=== PATIENT | female | born 1950 | race Caucasian/White ===

== ENCOUNTER → 2016-06-20 | Outpatient (REF) | payer MEDICARE ==
[~2016-06-20] MED LIST: ACET0.052 PO; AMLO10TA2 PO; ASPI32ECTA PO; ATOR1TAB18 PO; CINA30TA PO; DOCU10CA PO; FAMO40TA3 PO; FERR325T16 PO; FOLI1TAB2 PO; FURO20TA2 PO; HYDR1TAB97 PO; LEVO100T5 PO; METO25TAB PO; MICR10CA PO; MILKSUS PO; NEUTPW PO; PHOS1TAB3 PO; RAMI1.25 PO; ROBILIQ PO; THERTAB56 PO; TYLE167L PO; TYLE325T5 PO; ULTR50TA PO; VITA500T88 PO; VOLT1GEL24 TD; [UNRECOGNIZED DRUG - CODE] PR; flexeril PO
[2016-06-24 00:08] LABS: FREE KAPPA LIGHT CHAINS SERUM 49.56 mg/L (3.30-19.40); FREE LAMBDA LIGHT CHAINS SERUM 29.02 mg/L (5.71-26.30); KAPPA/LAMBDA RATIO SERUM 1.71 (0.26-1.65)
== END ==
LOC: M LAB REF 16:37
PROVIDERS: ATTEND Internal Medicine Medical Oncology
DX: C90.00 Multiple myeloma not having achieved remission (principal)

== ENCOUNTER → 2016-07-18 | Outpatient (REF) | payer MEDICARE ==
[~2016-07-18] MED LIST changes: +HYDR-3713 PO; -HYDR1TAB97 PO
[2016-07-18 18:32] LABS: TOTAL PROTEIN 6.4 GM/DL (6.4-8.2)
[2016-07-19 13:56] LABS: ALBUMIN 2.78 GM/DL (3.29-5.55); ALBUMIN % 43.5 % (55.8-66.1); GAMMA GLOBULIN % 11.2 % (11.1-18.8)
[2016-07-21 00:09] LABS: FREE KAPPA LIGHT CHAINS SERUM 84.5 mg/L (3.30-19.40); FREE LAMBDA LIGHT CHAINS SERUM 49.2 mg/L (5.71-26.30); KAPPA/LAMBDA RATIO SERUM 1.72 (0.26-1.65)
== END ==
LOC: M LAB REF 16:14
PROVIDERS: ATTEND Internal Medicine Medical Oncology
DX: C90.00 Multiple myeloma not having achieved remission (principal)

== ENCOUNTER 2016-07-19 13:19 | Outpatient (CLI) | payer MEDICARE ==
[2016-07-19 14:05] VITALS: BP 174/68
[2016-07-19] MEDS ORDERED: ACETAMINOPHEN TAB 650MG DOSE (2X325MG) PO ONE (14:15)
[2016-07-19] MEDS ORDERED: diphenhydrAMINE 25 MG CAP PO ONE (14:15)
[2016-07-19] MEDS ORDERED: SODIUM CHLORIDE 0.9% INJ 10 ML SYR IV PRN (17:30)
== END 2016-07-19 20:00 | disposition home or self-care (01) ==
LOC: M OPCLI4PV 13:19 → M MSPAV 13:59 → M OPCLI4PV 20:00
PROVIDERS: ATTEND Internal Medicine Medical Oncology
DX: C90.00 Multiple myeloma not having achieved remission (principal)
CPT/HCPCS: 36430; P9016

== ENCOUNTER → 2016-07-20 | Outpatient (CLI) | payer MEDICARE ==
--- NOTE | 2016-07-20 14:14 | REP ---
Right upper extremity duplex venous scanning: History: Recheck right upper extremity. Right hand and wrist swelling. Findings: The right internal jugular, right subclavian, right axillary, right brachial, right cephalic and basilic veins are anechoic and compressible. Color flow imaging is homogeneous. Spectral Doppler interrogation is unremarkable. There is no evidence of venous thrombosis in the right upper extremity. Impression: Negative right upper extremity duplex venous ultrasound. No evidence of right upper extremity venous thrombosis. Signed by Salty Calix MD 07/20/2016 04:33 P
== END ==
LOC: M RAD 12:24
PROVIDERS: ATTEND Internal Medicine Medical Oncology
DX: M79.641 Pain in right hand (principal)

== ENCOUNTER → 2016-08-29 | Outpatient (REF) | payer MEDICARE ==
[2016-08-29 18:38] LABS: TOTAL PROTEIN 7.2 GM/DL (6.4-8.2)
[2016-08-30 11:15] LABS: ALBUMIN 4.32 GM/DL (3.29-5.55); GAMMA GLOBULIN % 14.7 % (11.1-18.8)
[2016-09-01 14:15] LABS: FREE KAPPA LIGHT CHAINS SERUM 72.69 mg/L (3.30-19.40); FREE LAMBDA LIGHT CHAINS SERUM 25.66 mg/L (5.71-26.30); KAPPA/LAMBDA RATIO SERUM 2.83 (0.26-1.65)
== END ==
LOC: M LAB REF 16:42
PROVIDERS: ATTEND Internal Medicine Medical Oncology
DX: C90.00 Multiple myeloma not having achieved remission (principal)

== ENCOUNTER → 2016-10-31 | Outpatient (REF) | payer MEDICARE ==
[2016-10-31 19:11] LABS: TOTAL PROTEIN 7.1 GM/DL (6.4-8.2)
[2016-11-02 12:08] LABS: ALBUMIN 4.15 GM/DL (3.29-5.55); ALBUMIN % 58.4 % (55.8-66.1); GAMMA GLOBULIN % 16.4 % (11.1-18.8)
[2016-11-04 00:07] LABS: FREE KAPPA LIGHT CHAINS SERUM 169.03 mg/L (3.30-19.40); FREE LAMBDA LIGHT CHAINS SERUM 16.25 mg/L (5.71-26.30); KAPPA/LAMBDA RATIO SERUM 10.4 (0.26-1.65)
== END ==
LOC: M LAB REF 17:09
PROVIDERS: ATTEND Internal Medicine Medical Oncology
DX: C90.00 Multiple myeloma not having achieved remission (principal); Z79.899 Other long term (current) drug therapy

== ENCOUNTER → 2017-01-02 | Outpatient (REF) | payer MEDICARE ==
[~2017-01-02] MED LIST changes: +ASPI325T24 PO; -ASPI32ECTA PO; -ATOR1TAB18 PO; +ATOR80TA59 PO; -FOLI1TAB2 PO; +FOLI1TAB4 PO; -ULTR50TA PO; +ULTR50TA8 PO; +VOLT1GEL15 TD; -VOLT1GEL24 TD
[2017-01-02 20:04] LABS: IMMUNOGLOBULIN G 853 MG/DL (681-1648); TOTAL PROTEIN 7.7 GM/DL (6.4-8.2)
[2017-01-02 20:49] LABS: IMMUNOGLOBULIN M 8.51 MG/DL (40-230)
[2017-01-03 11:09] LABS: ALBUMIN % 57.8 % (55.8-66.1)
[2017-01-03 11:10] LABS: ALBUMIN 4.45 GM/DL (3.29-5.55); GAMMA GLOBULIN % 17.6 % (11.1-18.8)
[2017-01-05 00:08] LABS: FREE LAMBDA LIGHT CHAINS SERUM 10.3 mg/L (5.7-26.3); KAPPA/LAMBDA RATIO SERUM 33.01 (0.26-1.65)
== END ==
LOC: M LAB REF 16:34
PROVIDERS: ATTEND Internal Medicine Medical Oncology
DX: C90.00 Multiple myeloma not having achieved remission (principal)

== ENCOUNTER → 2017-02-28 | Outpatient (REF) | payer MEDICARE ==
[2017-02-28 18:57] LABS: FREE T4 1.03 NG/DL (0.76-1.46)
== END ==
LOC: M LAB REF 17:06
PROVIDERS: ATTEND Family Medicine
DX: E89.0 Postprocedural hypothyroidism (principal)

== ENCOUNTER → 2017-02-28 | Outpatient (REF) | payer MEDICARE ==
[2017-02-28 19:09] LABS: IMMUNOGLOBULIN G 595 MG/DL (681-1648); TOTAL PROTEIN 7.8 GM/DL (6.4-8.2)
[2017-02-28 20:01] LABS: IMMUNOGLOBULIN M 5.85 MG/DL (40-230)
[2017-03-01 13:45] LABS: ALBUMIN 4.22 GM/DL (3.29-5.55); ALBUMIN % 54.1 % (55.8-66.1); GAMMA GLOBULIN % 21.7 % (11.1-18.8)
[2017-03-03 00:06] LABS: FREE KAPPA LIGHT CHAINS SERUM 613.6 mg/L (3.3-19.4); FREE LAMBDA LIGHT CHAINS SERUM 7.7 mg/L (5.7-26.3); KAPPA/LAMBDA RATIO SERUM 79.69 (0.26-1.65)
== END ==
LOC: M LAB REF 17:07
PROVIDERS: ATTEND Internal Medicine Medical Oncology
DX: C90.00 Multiple myeloma not having achieved remission (principal); E89.0 Postprocedural hypothyroidism

== ENCOUNTER → 2017-03-12 | Outpatient (CLI) | payer MEDICARE ==
--- NOTE | 2017-03-14 09:48 | DEXA ---
AP SPINE L1 - L4 0.984 -1.7 -0.1 LT FEMUR TOTAL 0.578 -3.4 -2.1 RT FEMUR TOTAL 0.497 -4.1 -2.7 TOTAL BODY TOTAL OTHER COMMENTS: There is low bone density of the spine. There is osteoporosis of the hips. FOLLOW-UP: Recommendation for the next bone density exam: 2 years. MALIK
== END ==
LOC: M WHC 13:43
PROVIDERS: ATTEND Internal Medicine Medical Oncology
DX: C90.02 Multiple myeloma in relapse (principal); M81.0 Age-related osteoporosis without current pathological fracture

== ENCOUNTER → 2017-03-15 | Outpatient (CLI) | payer MEDICARE ==
--- NOTE | 2017-03-15 15:03 | REP ---
WHOLE BODY RADIONUCLIDE BONE SCAN: HISTORY: Restaging myeloma. Comparison radionuclide bone scan is from April 27, 2014. TECHNIQUE: 22.0 mCi technetium 99m MDP is injected, and standard whole body bone scan imaging is acquired. FINDINGS: Whole body bone scan imaging today demonstrates a metastatic pattern of multifocal increased uptake with lesions scattered in the axial skeleton involving bilateral ribs, the right proximal femur, the left inferior pubic ramus, the left femoral neck, and the lower sternum. A possible right parietal calvarial lesion is seen on lateral view of the skull. There is linear uptake in the sternum suggesting median sternotomy. Multiple anterior and posterior bilateral rib lesions are seen. There is suspicious uptake in T12 and T10 vertebral body in the region of the pedicles on the left. There is linear uptake in the L3 vertebral body horizontally oriented suggesting a recent wedge compression fracture deformity. There is arthritic uptake in the right wrist and in both acromioclavicular joints. IMPRESSION: Metastatic pattern of multifocal skeletal uptake involving the axial skeleton as above. Signed by Salty Calix MD 03/15/2017 05:23 P
== END ==
LOC: M RAD 10:32
PROVIDERS: ATTEND Internal Medicine Medical Oncology
DX: C90.00 Multiple myeloma not having achieved remission (principal)
CPT/HCPCS: 78306; A9503

== ENCOUNTER → 2017-05-28 | Outpatient (REF) | payer MEDICARE ==
[2017-05-28 19:31] LABS: IMMUNOGLOBULIN A 53.6 MG/DL (70-400); IMMUNOGLOBULIN G 391 MG/DL (681-1648)
[2017-05-28 20:31] LABS: IMMUNOGLOBULIN M < 5.3 MG/DL (40-230)
[2017-05-31 00:07] LABS: FREE KAPPA LIGHT CHAINS SERUM 7.2 mg/L (3.3-19.4); KAPPA/LAMBDA RATIO SERUM 0.6 (0.26-1.65)
[2017-05-31 12:41] LABS: ALBUMIN % 45.2 % (55.8-66.1); GAMMA GLOBULIN % 6.8 % (11.1-18.8)
== END ==
LOC: M LAB REF 17:57
PROVIDERS: ATTEND Internal Medicine Medical Oncology
DX: C90.00 Multiple myeloma not having achieved remission (principal)

== ENCOUNTER → 2017-06-25 | Outpatient (REF) | payer MEDICARE ==
[2017-06-25 14:16] LABS: IMMUNOGLOBULIN A 70.2 MG/DL (70-400); IMMUNOGLOBULIN G 455 MG/DL (681-1648); IMMUNOGLOBULIN M 23.4 MG/DL (40-230); TOTAL PROTEIN 6.4 GM/DL (6.4-8.2)
[2017-06-27 00:08] LABS: FREE KAPPA LIGHT CHAINS SERUM 15.1 mg/L (3.3-19.4); FREE LAMBDA LIGHT CHAINS SERUM 16.9 mg/L (5.7-26.3); KAPPA/LAMBDA RATIO SERUM 0.89 (0.26-1.65)
[2017-06-29 10:42] LABS: ALBUMIN % 57.6 % (55.8-66.1); ALPHA-1-GLOBULIN % 6.6 % (2.9-4.9); BETA-1-GLOBULINS % 6.7 % (4.7-7.2)
[2017-06-29 10:43] LABS: ALBUMIN 3.69 GM/DL (3.29-5.55); ALPHA-1-GLOBULINS 0.42 GM/DL (0.17-0.41); ALPHA-2-GLOBULINS 1.09 GM/DL (0.42-0.99); BETA-1-GLOBULINS 0.43 GM/DL (0.28-0.60); BETA-2-GLOBULINS 0.29 GM/DL (0.19-0.55); BETA-2-GLOBULINS % 4.5 % (3.2-6.5); GAMMA GLOBULIN % 7.6 % (11.1-18.8); GAMMA GLOBULINS 0.49 GM/DL (0.65-1.58)
== END ==
LOC: M LAB REF 12:42
DX: C90.00 Multiple myeloma not having achieved remission (principal)
CPT/HCPCS: 84165

== ENCOUNTER → 2017-08-06 | Outpatient (REF) | payer MEDICARE ==
[2017-08-06 14:42] LABS: IMMUNOGLOBULIN G 421 MG/DL (681-1648); TOTAL PROTEIN 6.9 GM/DL (6.4-8.2)
[2017-08-06 15:30] LABS: IMMUNOGLOBULIN M 10.8 MG/DL (40-230)
[2017-08-07 13:39] LABS: ALBUMIN % 57.4 % (55.8-66.1); ALPHA-1-GLOBULIN % 4.6 % (2.9-4.9)
[2017-08-07 13:40] LABS: ALBUMIN 3.96 GM/DL (3.29-5.55); ALPHA-1-GLOBULINS 0.32 GM/DL (0.17-0.41); ALPHA-2-GLOBULINS 1.06 GM/DL (0.42-0.99); ALPHA-2-GLOBULINS % 15.4 % (7.1-11.8); BETA-1-GLOBULINS % 5.8 % (4.7-7.2); BETA-2-GLOBULINS % 11.6 % (3.2-6.5); GAMMA GLOBULIN % 5.2 % (11.1-18.8); GAMMA GLOBULINS 0.36 GM/DL (0.65-1.58)
[2017-08-08 00:06] LABS: FREE KAPPA LIGHT CHAINS SERUM 8.2 mg/L (3.3-19.4); FREE LAMBDA LIGHT CHAINS SERUM 7.6 mg/L (5.7-26.3); KAPPA/LAMBDA RATIO SERUM 1.08 (0.26-1.65)
== END ==
LOC: M LAB REF 13:32
DX: C90.00 Multiple myeloma not having achieved remission (principal)
CPT/HCPCS: 84165

== ENCOUNTER → 2017-10-22 | Outpatient (CLI) | payer MEDICARE ==
[~2017-10-22] MED LIST changes: -ACET0.052 PO; -AMLO10TA2 PO; -ASPI325T24 PO; -ATOR80TA59 PO; -CINA30TA PO; -DOCU10CA PO; -FAMO40TA3 PO; -FERR325T16 PO; -FOLI1TAB4 PO; -FURO20TA2 PO; -HYDR-3713 PO; -LEVO100T5 PO; -METO25TAB PO; -MICR10CA PO; -MILKSUS PO; -NEUTPW PO; -PHOS1TAB3 PO; +PROHANCE 279.3MG/ML 5ML VIAL (A9576) As Ordered; -RAMI1.25 PO; -ROBILIQ PO; -THERTAB56 PO; -TYLE167L PO; -TYLE325T5 PO; -ULTR50TA8 PO; -VITA500T88 PO; -VOLT1GEL15 TD; -[UNRECOGNIZED DRUG - CODE] PR; -flexeril PO
== END ==
LOC: M RAD 16:11
DX: M87.9 Osteonecrosis, unspecified (principal); Z87.81 Personal history of (healed) traumatic fracture; R93.7 Abnormal findings on diagnostic imaging of other parts of musculoskeletal system
CPT/HCPCS: A9576

== ENCOUNTER → 2017-12-10 | Outpatient (REF) | payer MEDICARE | LOC: M SFHCPLAZ 13:29 | DX: E89.0 Postprocedural hypothyroidism (principal) | CPT/HCPCS: 84443 ==

== ENCOUNTER → 2018-01-04 | Outpatient (REF) | payer MEDICARE ==
[2018-01-04 14:34] LABS: IMMUNOGLOBULIN A 72.4 MG/DL (70-400); IMMUNOGLOBULIN G 368 MG/DL (681-1648); TOTAL PROTEIN 6.7 GM/DL (6.4-8.2)
[2018-01-04 14:37] LABS: IMMUNOGLOBULIN M 7.71 MG/DL (40-230)
[2018-01-06 00:09] LABS: FREE KAPPA LIGHT CHAINS SERUM 32.6 mg/L (3.3-19.4); FREE LAMBDA LIGHT CHAINS SERUM 5.3 mg/L (5.7-26.3); KAPPA/LAMBDA RATIO SERUM 6.15 (0.26-1.65)
[2018-01-07 13:53] LABS: ALBUMIN 4.25 GM/DL (3.29-5.55); ALBUMIN % 63.5 % (55.8-66.1); ALPHA-1-GLOBULIN % 4.9 % (2.9-4.9); ALPHA-1-GLOBULINS 0.33 GM/DL (0.17-0.41); ALPHA-2-GLOBULINS 0.99 GM/DL (0.42-0.99); ALPHA-2-GLOBULINS % 14.8 % (7.1-11.8); BETA-1-GLOBULINS 0.42 GM/DL (0.28-0.60); BETA-1-GLOBULINS % 6.3 % (4.7-7.2); BETA-2-GLOBULINS 0.28 GM/DL (0.19-0.55); BETA-2-GLOBULINS % 4.2 % (3.2-6.5); GAMMA GLOBULIN % 6.3 % (11.1-18.8); GAMMA GLOBULINS 0.42 GM/DL (0.65-1.58)
== END ==
LOC: M LAB REF 13:08
DX: C90.00 Multiple myeloma not having achieved remission (principal); C79.51 Secondary malignant neoplasm of bone; Z79.83 Long term (current) use of bisphosphonates
CPT/HCPCS: 84165

== ENCOUNTER → 2018-02-04 | Outpatient (REF) | payer MEDICARE ==
[2018-02-04 14:53] LABS: IMMUNOGLOBULIN A 94.6 MG/DL (70-400); IMMUNOGLOBULIN G 402 MG/DL (681-1648)
[2018-02-04 15:58] LABS: IMMUNOGLOBULIN M 6.01 MG/DL (40-230)
== END ==
LOC: M LAB REF 13:33
DX: Z79.83 Long term (current) use of bisphosphonates (principal); C79.51 Secondary malignant neoplasm of bone; C90.00 Multiple myeloma not having achieved remission
CPT/HCPCS: 82784

== ENCOUNTER → 2018-03-04 | Outpatient (REF) | payer MEDICARE ==
[2018-03-04 16:36] LABS: IMMUNOGLOBULIN G 401 MG/DL (681-1648); TOTAL PROTEIN 6.9 GM/DL (6.4-8.2)
[2018-03-04 16:59] LABS: IMMUNOGLOBULIN M 5.4 MG/DL (40-230)
[2018-03-05 11:23] LABS: ALBUMIN 4.28 GM/DL (3.29-5.55); ALBUMIN % 62.1 % (55.8-66.1); ALPHA-1-GLOBULIN % 4.9 % (2.9-4.9); ALPHA-1-GLOBULINS 0.34 GM/DL (0.17-0.41); ALPHA-2-GLOBULINS 1.06 GM/DL (0.42-0.99); ALPHA-2-GLOBULINS % 15.4 % (7.1-11.8); BETA-1-GLOBULINS 0.43 GM/DL (0.28-0.60); BETA-1-GLOBULINS % 6.2 % (4.7-7.2); BETA-2-GLOBULINS % 4.3 % (3.2-6.5); GAMMA GLOBULIN % 7.1 % (11.1-18.8); GAMMA GLOBULINS 0.49 GM/DL (0.65-1.58)
== END ==
LOC: M LAB REF 13:48
DX: C90.00 Multiple myeloma not having achieved remission (principal); C79.51 Secondary malignant neoplasm of bone; Z79.83 Long term (current) use of bisphosphonates
CPT/HCPCS: 84165

== ENCOUNTER → 2018-06-14 | Outpatient (REF) | payer MEDICARE ==
[~2018-06-14] MED LIST changes: +ACET0.052 PO; +ACYC400T PO; +AMLO10TA5 PO; +ASPI325T25 PO; +ATOR80TA59 PO; +CALTCHW5 PO; +CINA30TA PO; +DEXA4TA PO; +DOCU10CA PO; +FAMO40TA3 PO; +FERR325T16 PO; +FOLI1TAB11 PO; +FURO20TA2 PO; +HYDR-3713 PO; +LEVO100T5 PO; +METO1TAB32 PO; +METO1TAB87 PO; +METO25TAB PO; +MICR10CA PO; +MILK120011 PO; +MIRA3350 PO; +MONT10TA2 PO; +NEUTPW PO; +PHOS1TAB3 PO; -PROHANCE 279.3MG/ML 5ML VIAL (A9576) As Ordered; +RAMI1CAP21 PO; +ROBILIQ PO; +SENO8.6T5 PO; +THERTAB56 PO; +TYLE167L PO; +TYLE325T5 PO; +ULTR50TA8 PO; +VITA500T88 PO; +VOLT1GEL15 TD; +[UNRECOGNIZED DRUG - CODE] PR; +flexeril PO
[2018-06-14 14:34] LABS: TOTAL PROTEIN,RANDOM URINE 14.8 MG/DL (0.0-12.0)
== END ==
LOC: M LAB REF 13:34
PROVIDERS: ATTEND Internal Medicine Hematology & Oncology
DX: R39.9 Unspecified symptoms and signs involving the genitourinary system (principal)

== ENCOUNTER → 2018-10-02 | Outpatient (CLI) | payer MEDICARE ==
[~2018-10-02] MED LIST changes: +ASPI-255 PO; -ASPI325T25 PO; +METO1TAB63 PO; -METO25TAB PO; +SYNT88TA2 PO
--- NOTE | 2018-10-02 15:02 | REP ---
SKELETAL SURVEY: 16 VIEWS. HISTORY: Myeloma. Comparison skeletal survey is from March 04, 2015. FINDINGS: The prior study showed widespread skeletal involvement with innumerable punched-out radiolucent lesions throughout the axial skeleton. Diffuse osteoporosis was seen. Today's study shows innumerable radiolucent calvarial lesions in the bony calvarium diffusely. These are felt to be more numerous than on the March 04, 2015 study. No large radiolucent lesion is seen. There are numerous mandibular lesions which also appear to have progressed in number. There are widespread radiolucencies throughout the pelvis and proximal femurs bilaterally and advanced diffuse osteopenia is again evident. These are more numerous. There is a healing fracture of the inferior pubic ramus on the left, which is a new finding. There are numerous lytic lesions in the mid and proximal femurs bilaterally which are similar to the prior study. Proximal humeral lesions are again seen bilaterally also similar to the prior study. Multiple wedge compression deformities are again noted in the thoracic and lumbar spine involving T9 through L1 as well as L3 and L5. The thoracic compressions are unchanged in extent. The partial collapse of the superior endplate of L5 is new compared to the prior study. There is progressive loss of vertebral body height at L3, although there is some healing sclerosis change at L3. No new vertebral collapse is appreciated. IMPRESSION: Widespread skeletal punched-out lucent lesions consistent with myelomatous involvement. There is evidence of progression, most conspicuously in the calvarium and pelvis. Electronically Signed by Salty Calix MD 10/02/2018 04:04 P
== END ==
LOC: M RAD 10:45
PROVIDERS: ATTEND Internal Medicine Hematology & Oncology
DX: C90.00 Multiple myeloma not having achieved remission (principal)

== ENCOUNTER → 2018-11-12 | Outpatient (CLI) | payer MEDICARE ==
[~2018-11-12] MED LIST changes: -CINA30TA PO; +CINA30TA4 PO; +OXYC-517 PO; +VALA500T5 PO
--- NOTE | 2018-11-13 07:41 | RADONC ---
RADIATION ONCOLOGY CONSULTATION: DATE: 11/12/2018 REFERRING PHYSICIAN: Dr. Kelsea Azar. DIAGNOSIS: She has a diagnosis of multiple myeloma, kappa M type. STAGE: III. ICD-10 CODE: C 90.00. ECOG PERFORMANCE STATUS: 1. HISTORY OF PRESENT ILLNESS: The patient is a 68-year-old female who is fairly well known to this department because we have treated her in 2015 for palliation. She carries a diagnosis of a kappa M multiple myeloma, stage III, and had been treated with a single agent for quite a long period of time (daratumumab). In fact, the patient was doing quite well on this treatment. She had actually fairly stable disease but most recently has shown evidence of progression. She saw Dr. Kelsea Azar, who had placed the patient on daratumumab. She has most recently shown evidence of progressive lytic involvement of the skeletal system and she also has had an increase in her serologies. The pain is described as "excruciating" and it is located in the right acetabular region when she puts weight upon her leg as in getting up or standing. She describes the pain as a 10 out of 10. The most recent skeletal survey performed on 10/02/2018 reveals widespread skeletal punched-out lucent lesions consistent with multiple myeloma. There was evidence of progression most conspicuously in the calvarium and in the pelvis. She comes to us today to discuss her options with regard to radiotherapy and palliation of her fairly debilitating pain. PAST MEDICAL HEALTH: She has a history of hypertension and hypothyroidism and a previous cardiac bypass. ALLERGIES: No known drug allergies. SOCIAL HISTORY: The patient quit smoking in 2017, however, prior to that smoked one pack of cigarettes for about 30 years. She denies alcohol abuse. FAMILY HISTORY: She has a negative history for malignancies. WORK HISTORY: She has been a homemaker. She has two children who are healthy. REVIEW OF SYSTEMS: She has significant physical limitations secondary to pain in the right hemipelvis. She describes her pain as being a10/10 and located in the groin area approximately at the location of the acetabulum on the right. Her pain is of course we worse when she stands or puts weight upon her leg or with some lateral movement of her lack. HEENT: Denies headaches, visual disturbances, dizziness, photophobia, diplopia, oral pain, pharyngeal pain, odynophagia or dysphagia. LYMPHATICS: She denies any previous history of lymphadenopathy. She denies easy bruising. PULMONARY: Denies difficulty with breathing thoracic pain, coughing, sputum production or hemoptysis. HEART: Denies rhythmic irregularities chest pain, difficulty breathing, coughing. ABDOMEN: Denies abdominal pains nausea, vomiting, diarrhea, constipation. GENITOURINARY: Denies dysuria, hematuria. GYNECOLOGIC: Denies vaginal discharge or bleeding. SKELETAL SYSTEM: She has exquisite tenderness of her right hip upon standing. NEUROLOGIC EXAMINATION: Denies any focal motor neurologic deficits. EXAMINATION FINDINGS: Weight 149, BP 126/74, pulse 70, temperature 99.7, respirations 18, height 5 foot 1 inch. HEENT: Normocephalic. EOMs intact. JULIÁN. Fundi benign. LYMPHATICS: No palpable peripheral lymphadenopathy is appreciated. LUNGS: Clear to auscultation and percussion. HEART: Regular without murmurs. ABDOMEN: Without evidence of hepatomegaly, masses, deep abdominal tenderness. EXTREMITIES: Without cyanosis, clubbing or edema. NEUROLOGIC: Examination grossly physiologic. IMPRESSION: Stage III kappa M multiple myeloma status post treatment with single-agent daratumumab now with evidence of progressive disease with excruciating pain in the right hemipelvis and radiographic evidence of progressive tumor involvement and serologic evidence of advancing disease. PLAN OF RADIOTHERAPY: The patient would be an appropriate candidate for local regional palliative radiotherapy. Upon reviewing her old history, she had a dose of approximately 2100 cGy administered to the lower T-L spine with SI regions included as well as the right hip. As she has only had 2100 cGy, I feel additional radiotherapy would be a possibility for palliation. An additional dose of approximately 2100 cGy should be well tolerated administered at conventional fractionation. The indications, possible side effects as well as alternatives to radiotherapy have been explained to the patient in detail. She does understand that we are retreating her and that this might be fraught with potential side effects, especially if any bowel is retreated. We will make every effort to avoid any bowel within our radiation portals but again she is aware that she has had previous radiotherapy and that there is a risk for potential injury because of her retreatment. She is willing to proceed as outlined. Thank you for referring this very nereida lady to us and allowing us the opportunity of participation in her overall management. cc: Dr. Kelsea Azar [facility]
== END ==
LOC: M ONCR 12:51
PROVIDERS: ATTEND Radiology Radiation Oncology
DX: C90.00 Multiple myeloma not having achieved remission (principal)

== ENCOUNTER → 2018-11-29 | Outpatient (CLI) | payer MEDICARE ==
[~2018-11-29] MED LIST changes: +REVL15CA PO
--- NOTE | 2018-11-29 14:42 | REP ---
MRI RIGHT HIP: TECHNIQUE: Coronal T1, STIR through the pelvis, T2 fat sat, right hip all three planes, axial oblique proton density fat sat right hip. Multiple bone lesions are seen throughout the osseous structures of the pelvis and proximal left femur consistent with a history of wide-spread multiple myeloma. The proximal aspect of the right femur demonstrates possibly a few tiny subcentimeter bone lesions. However, there is focal marrow edema in the medial aspect of the proximal left femur just above the lesser trochanter with a somewhat linear configuration having the appearance of a focal stress fracture at that location. There is a tear of the anterior labrum of the right hip superiorly. There is a small right hip joint effusion. There is mild surrounding soft tissue edema. No definite intrapelvic abnormality is seen. IMPRESSION: Findings most consistent with a focal cortical stress fracture of the medial aspect of the proximal right femur just above the lesser trochanter. Multiple innumerable bone lesions throughout the osseous structures of the pelvis and proximal left femur consistent with the patient's history of widespread multiple myeloma. There may be a few tiny subcentimeter lesions in the proximal right femur. There is a tear of the superior aspect of the anterior labrum of the right hip. There is a small joint effusion as well. Unreviewed
== END ==
LOC: M RAD 13:02
PROVIDERS: ATTEND Internal Medicine Medical Oncology
DX: C90.00 Multiple myeloma not having achieved remission (principal); M25.451 Effusion, right hip; S73.101A Unspecified sprain of right hip, initial encounter; X58.XXXA Exposure to other specified factors, initial encounter; Y92.89 Other specified places as the place of occurrence of the external cause

== ENCOUNTER 2018-12-06 11:17 | Outpatient (RCR) | payer MEDICARE ==
--- NOTE | 2018-11-14 10:34 | RADONC ---
RADIATION ONCOLOGY SIMULATION NOTE: DATE: 11/14/2018 DIAGNOSIS: Stage III kappa multiple myeloma with intractable pain in the right proximal femur secondary to her recurrent disease. CHART NUMBER: [id number] SIMULATION: The patient was seen for simulation of the right proximal femur. An immobilization device was constructed for patient stability to enable an accurate day-to-day treatment. The patient was then placed in the supine position with the immobilization device in place and 3 mm images were obtained through the right femoral area. The simulation process went forward with no complications or no discomfort to the patient. She tolerated this process well and I was present during the entire simulation process. Contouring will be made of vital structures and of the intended treatment area (PTV). A treatment plan will be generated and treatments will be initiated thereafter. cc: Kelsea Azar MD [facility]
--- NOTE | 2018-12-03 10:20 | MEDONC ---
HEMATOLOGY/ONCOLOGY PROGRESS NOTE DATE OF SERVICE: 12/02/2018 This is a very pleasant 68-year-old white female who will be starting elotuzumab/lenalidomide/dexamethasone regimen for her multiple myeloma that has shown disease progression by virtue of increasing serologies, as well as new areas on her bone imaging study skeletal survey. The patient had developed pain in the pelvic area and was found by most recent imaging studies to have a stress fracture in the pelvic region. The patient has read the patient information regarding the elotuzumab therapy and is ready to receive treatment today. She is already on acyclovir or prophylaxis. The patient's past medical history is above-noted, stage IIIB IgA multiple myeloma with increasing light chain disease. PRIOR CHEMOTHERAPY REGIMENS: Were: Aredia/Velcade/Revlimid/dexamethasone. Ninlaro, Revlimid, and dexamethasone. Carfilzomib and Revlimid. Zometa. Pomalyst, daratumumab, and dexamethasone. Single-agent daratumumab and dexamethasone. PAST MEDICAL HISTORY: Includes obesity, hypertension, hyperlipidemia, coronary artery disease status post CABG, hyperthyroidism status post parathyroidectomy, hypothyroidism, and hysterectomy. On the review of systems, the patient uses a walker for ambulation. Relates that she still has some discomfort when she is sitting in the chair, which has been her average. She is currently on oxycodone for pain medication and did not take it this morning. On her physical examination, the patient's ECOG is 2/4. Her weight is 68.7. On her vital signs, she has a temperature of 96.9, pulse is 68, respiratory rate is 18, BP is 153/76, pulse oximetry is 94. Her HEENT is normocephalic, atraumatic. PERRL. EOMI. Her sclerae are otherwise white, anicteric. Oropharynx is otherwise clear. Her neck is supple with no adenopathy. Chest is decreased breath sounds at the bases. Cardiovascular: S1 and S2 are appreciated with no murmurs. Abdomen is otherwise soft, nontender. Her extremities show no cyanosis, +1 trace edema. LABORATORIES: Today show a WBC count of 6.5, hemoglobin of 11.3 over hematocrit 35.9, MCV of 104.3, platelet counts are 295, neutrophils are 85.1, lymphocytes are 9.4. On the chemistries, her sodium is 134, potassium is 4.2, chloride is 100, CO2 24, BUN is 19, creatinine of 1.24, calcium is 9.3, AST of 7, ALT of -4, alkaline phosphatase of 121. On 10/15/2018, free kappa light chains were 573.9. Her lambda quantitative was 2.4, and the free kappa/lambda ratio was 239. IgA was 467, IgM less than 5.3, IgG 9.7. On the patient's imaging studies, she had an MRI of her hip done showing findings most consistent with focal cortical stress fracture of the medial aspect of the proximal right femur just above the lesser trochanter and multiple innumerable bone lesions throughout the osseous structures of the pelvis and proximal left femur consistent with the patient's history of widespread multiple myeloma. There may be a few tiny subcentimeter lesions in the proximal right femur. There is a tear of the superior aspect of the anterior labrum of the right hip. There is also a small joint effusion, as well. IMPRESSION: At this time is: 1. Rising creatinine from 0.99 to 1.24. 2. Rising kappa light chains from 317 in July to 573 currently. 3. Increase in the pelvic lesions, multiple myeloma lesions. 4. Current pain being managed with oxycodone is adequate at this point. PLAN: Is: 1. To continue the current pain regimen. 2. To start the elotuzumab regimen and to monitor the patient's serum free light and kappa chains after two cycles of therapy are given. Please note that the elotuzumab regimen changes after cycle two. Electronically Signed by Kelsea Azar MD 12/03/2018 10:31 A DD: Kelsea Azar MD 12/02/2018 09:44 A DT: aml 12/03/2018 09:53 A CC:
[2018-12-09] MEDS ORDERED: OXYC-517 PO (09:24)
[2018-12-18] MEDS ORDERED: MORP-38 PO ×3 (09:56→09:58)
== END 2018-12-08 ==
LOC: M ONCR 11:17
PROVIDERS: ATTEND Radiology Radiation Oncology
DX: C79.51 Secondary malignant neoplasm of bone (principal); C90.00 Multiple myeloma not having achieved remission

== ENCOUNTER 2018-12-10 11:27 | Outpatient (RCR) | payer MEDICARE ==
--- NOTE | 2018-12-10 06:50 | RADONC ---
RADIATION ONCOLOGY TREATMENT SUMMARY DATE: 12/09/2018 REFERRING PHYSICIAN: Kelsea Azar MD DIAGNOSIS: Multiple myeloma, kappa M type. STAGE: III ECOG PERFORMANCE STATUS: 1 PLAN OF RADIOTHERAPY: Local regional radiotherapy for palliation of pain. Date radiotherapy started 12/02/2018 completed 12/09/2018. DOSE: The patient received a total of 2100 centigray administered in seven fractions over eight elapsed days. Prior to treatment delivery localization was accomplished upon our CT simulator and treatment portals defined by the use of multiple leaf collimators. A 15 MV photon beam was employed for treatment delivery. The patient was treated through anterior posterior parallel opposed portals. STATUS OF TUMOR: There was minimal pain relief during her course of radiotherapy with further potential pain relief hopefully to come. TOLERANCE: In general, treatments were quite well tolerated with no significant skin erythema. No nausea, vomiting, coughing, sputum production or hemoptysis. DISPOSITION: Return to clinic in 1 month for post radiotherapy followup visit and skin check and she was advised to return to her referring physicians as per their directions and instructions. Thank you for allowing us the opportunity of participation in the management of this very fine patient. cc: Kelsea Azar MD [facility]
[~2018-12-10 11:27] MED LIST changes: +ACET-1146 PO; -ACET0.052 PO
[2018-12-16] MEDS ORDERED: REVL15CA PO (06:30)
[2018-12-18] MEDS ORDERED: MORP-69 PO ×3 (09:56→09:58)
[2019-01-01] MEDS ORDERED: VICO10TA11 PO (12:09)
[2019-02-11] MEDS ORDERED: ENOX40IN3 (13:06)
[2019-02-26] MEDS ORDERED: VICO10TA11 PO (11:11)
[2019-02-27] MEDS ORDERED: VICO10TA11 PO (08:07)
[2019-03-31] MEDS ORDERED: VICO10TA11 PO (15:06)
[2019-04-16] MEDS ORDERED: VALA500T5 PO (10:37)
[2019-05-06] MEDS ORDERED: BAYE325T16 PO (11:34)
[2019-05-06] MEDS ORDERED: POMA2CAP PO ×2 (14:55→14:57)
[2019-05-07] MEDS ORDERED: VICO10TA11 PO (10:12)
[2019-05-12] MEDS ORDERED: HYDR-4517 PO (09:23)
[2019-06-05] MEDS ORDERED: HYDR-4517 PO (15:47)
[2019-06-06] MEDS ORDERED: HYDR-4517 PO (09:42)
[2019-06-13] MEDS ORDERED: POMA2CAP PO (09:31)
== END 2019-01-08 ==
LOC: M ONCR 11:27
PROVIDERS: ATTEND Radiology Radiation Oncology
DX: C79.51 Secondary malignant neoplasm of bone (principal); C90.00 Multiple myeloma not having achieved remission

== ENCOUNTER → 2019-01-01 | Outpatient (CLI) | payer MEDICARE ==
[~2019-01-01] MED LIST changes: -ACET-1146 PO; +ACET0.052 PO; +MORP-38 PO; +VICO10TA11 PO
--- NOTE | 2019-01-01 12:48 | REP ---
Right hip two views: There are no comparisons. There is demineralization. There is a nondisplaced femoral neck fracture. No femoral head deformity. There is endosteal scalloping of the proximal femoral shaft compatible with the clinical history of multiple myeloma. Impression: Nondisplaced femoral neck fracture. Endosteal scalloping of the proximal femoral shaft. Electronically Signed by Kendall Arana MD 01/01/2019 12:38 P
--- NOTE | 2019-01-01 12:58 | REP ---
AP pelvis: I suspect an old fracture of the left ischium. No acute fracture is identified. There is diffuse demineralization. The sacroiliac articulations and hip articulations are unremarkable. Impression: No acute fracture. Old left ischial fracture. Electronically Signed by Kendall Arana MD 01/01/2019 12:50 P
== END ==
LOC: M RAD 11:17
PROVIDERS: ATTEND Internal Medicine Hematology & Oncology
DX: S72.044A Nondisplaced fracture of base of neck of right femur, initial encounter for closed fracture (principal); X58.XXXA Exposure to other specified factors, initial encounter; Y92.89 Other specified places as the place of occurrence of the external cause

== ENCOUNTER → 2019-01-15 | Outpatient (CLI) | payer MEDICARE ==
[~2019-01-15] MED LIST changes: +ASPI-1 PO; -MORP-38 PO; +MORP-69 PO; +SENO8.6T10 PO
--- NOTE | 2019-01-17 07:59 | RADONC ---
RADIATION ONCOLOGY FOLLOWUP NOTE DATE: 01/15/2019 REFERRING PHYSICIAN: Dr. Kelsea Azar. DIAGNOSIS: Multiple myeloma, kappa M type. STAGE: III. ECOG PERFORMANCE STATUS: 1. Marianne Milner with a diagnosis of multiple myeloma was treated from 12/02/2018 to 12/09/2018 for a multiple myeloma. Her primary purpose for radiotherapy was to help control pain in her affected hip. She tolerated her radiation reasonably well but received very little palliative response. REVIEW OF SYSTEMS: She denies any nausea, vomiting, diarrhea, dysuria, hematuria or blood per rectum. She does experience a great deal of pain when she moves her right hip, but she denies any skin irritation. Her energy level is diminished, yet she is still able to maintain her day-to-day activities which do not involve ambulation. EXAMINATION FINDINGS: The skin within the irradiated volume shows no evidence of erythema and no focal desquamation. Lymphatics: There is no palpable peripheral lymphadenopathy appreciated. Lungs: Clear to auscultation and to percussion. Heart: Regular without murmurs. Abdomen: Without evidence of hepatomegaly, masses, deep abdominal tenderness. Extremities: Without cyanosis, clubbing or edema. With passive movement of the right lower extremity, the patient experiences a great deal of pain and she virtually because of the pain cannot move this lower extremity independently. IMPRESSION: The patient still is suffering from a great deal of pain in the right lower extremity even though she has completed palliative radiotherapy. PLAN: Would like to see her on a p.r.n. basis and she was advised to return to her referring physicians as per their directions and instructions. Thank you for allowing us the opportunity of participation in the joint followup care of this very nereida lady.
== END ==
LOC: M ONCR 12:52
PROVIDERS: ATTEND Radiology Radiation Oncology
DX: C90.00 Multiple myeloma not having achieved remission (principal)

== ENCOUNTER 2019-01-16 13:28 | Emergency (ER) | payer MEDICARE ==
[~2019-01-16] VITALS: Ht 154.9 cm; Wt 66.8 kg
[~2019-01-16 13:28] MED LIST changes: -ASPI-1 PO; -SENO8.6T10 PO
[2019-01-16] MEDS ORDERED: ASPI-1 PO (16:34)
[2019-01-16] MEDS ORDERED: SENO8.6T10 PO (16:36)
[2019-01-16] MEDS ORDERED: VALA500T5 PO (16:36)
[2019-01-16] MEDS ORDERED: METOPROLOL TART 25 MG TABLET PO ONE (18:45)
[2019-01-16 19:11] VITALS: BP 208/88
[2019-01-16 20:22] VITALS: BP 198/90
[2019-02-11] MEDS ORDERED: ENOX40IN3 (13:06)
== END 2019-01-16 20:24 | disposition short-term general hospital (02) ==
LOC: M ED 13:28
DX: M84.559A Pathological fracture in neoplastic disease, hip, unspecified, initial encounter for fracture (principal); C90.00 Multiple myeloma not having achieved remission; I10 Essential (primary) hypertension; I25.2 Old myocardial infarction; E78.5 Hyperlipidemia, unspecified; E05.00 Thyrotoxicosis with diffuse goiter without thyrotoxic crisis or storm; Z95.1 Presence of aortocoronary bypass graft; Z87.891 Personal history of nicotine dependence; Z79.899 Other long term (current) drug therapy; Z79.82 Long term (current) use of aspirin

== ENCOUNTER → 2019-01-25 | Outpatient (REF) | payer MEDICARE ==
[~2019-01-25] MED LIST changes: +ACET-1146 PO; -ACET0.052 PO; +ASPI-1 PO; +BAYE325T16 PO; +ENOX40IN3; +HYDR-4517 PO; +POMA2CAP PO; +SENO8.6T10 PO
[2019-01-25 13:13] LABS: BLOOD UREA NITROGEN 19 MG/DL (7-18); CALCIUM LEVEL 8.8 MG/DL (8.8-10.2); CARBON DIOXIDE LEVEL 27 MEQ/L (21-32); CHLORIDE LEVEL 104 MEQ/L (98-107); CREATININE FOR GFR 0.86 MG/DL (0.55-1.30); GLOMERULAR FILTRATION RATE > 60.0 (>45); GLUCOSE, FASTING 86 MG/DL (70-100); POTASSIUM SERUM 4.4 MEQ/L (3.5-5.1); SODIUM LEVEL 138 MEQ/L (136-145)
[2019-01-25 13:57] LABS: MAGNESIUM LEVEL 2.2 MG/DL (1.8-2.4)
== END ==
PROVIDERS: ATTEND Internal Medicine
DX: E87.6 Hypokalemia (principal)

== ENCOUNTER → 2019-01-27 | Outpatient (REF) ==
[~2019-01-27] MED LIST changes: -ACET-1146 PO; +ACET0.052 PO; -BAYE325T16 PO; -ENOX40IN3; -HYDR-4517 PO; -POMA2CAP PO
[2019-01-27 10:45] LABS: HEMATOCRIT 30.1 % (36.0-47.0); HEMOGLOBIN 9.9 g/dl (12.0-15.5); MEAN CORPUSCULAR HEMOGLOBIN 32.9 pg (27.0-33.0); MEAN CORPUSCULAR HGB CONC 32.9 g/dl (32.0-36.5); PLATELET COUNT, AUTOMATED 299 10^3/uL (150-450); RED BLOOD COUNT 3.01 10^6/uL (4.00-5.40); WHITE BLOOD COUNT 6.1 10^3/uL (4.0-10.0)
[2019-01-27 11:14] LABS: BLOOD UREA NITROGEN 19 MG/DL (7-18); CALCIUM LEVEL 8.9 MG/DL (8.8-10.2); CARBON DIOXIDE LEVEL 25 MEQ/L (21-32); CHLORIDE LEVEL 101 MEQ/L (98-107); CREATININE FOR GFR 0.75 MG/DL (0.55-1.30); GLOMERULAR FILTRATION RATE > 60.0 (>45); GLUCOSE, FASTING 80 MG/DL (70-100); MAGNESIUM LEVEL 2.4 MG/DL (1.8-2.4); POTASSIUM SERUM 4.4 MEQ/L (3.5-5.1); SODIUM LEVEL 138 MEQ/L (136-145)
[2019-01-27 11:57] LABS: FERRITIN 1224 NG/ML (8-252); IRON (FE) 46 UG/DL (50-170); TOTAL IRON BINDING CAPACITY 219 UG/DL (250-450)
[2019-01-27 12:04] LABS: FOLATE 15.3 NG/ML (>5.4); VITAMIN B12 LEVEL 265 PG/ML (247-911)
== END ==
PROVIDERS: ATTEND Internal Medicine
DX: I10 Essential (primary) hypertension (principal)

== ENCOUNTER → 2019-02-03 | Outpatient (REF) ==
[~2019-02-03] MED LIST changes: +ACET-1146 PO; -ACET0.052 PO; +BAYE325T16 PO; +ENOX40IN3; +HYDR-4517 PO; +POMA2CAP PO
[2019-02-03 11:01] LABS: HEMATOCRIT 29.2 % (36.0-47.0); HEMOGLOBIN 9.3 g/dl (12.0-15.5); MEAN CORPUSCULAR HEMOGLOBIN 33.6 pg (27.0-33.0); MEAN CORPUSCULAR HGB CONC 31.8 g/dl (32.0-36.5); MEAN CORPUSCULAR VOLUME 105.4 fl (80.0-96.0); PLATELET COUNT, AUTOMATED 361 10^3/uL (150-450); RED BLOOD COUNT 2.77 10^6/uL (4.00-5.40); WHITE BLOOD COUNT 6.1 10^3/uL (4.0-10.0)
[2019-02-03 11:23] LABS: BLOOD UREA NITROGEN 18 MG/DL (7-18); CALCIUM LEVEL 8.8 MG/DL (8.8-10.2); CARBON DIOXIDE LEVEL 23 MEQ/L (21-32); CHLORIDE LEVEL 105 MEQ/L (98-107); CREATININE FOR GFR 0.85 MG/DL (0.55-1.30); GLOMERULAR FILTRATION RATE > 60.0 (>45); GLUCOSE, FASTING 82 MG/DL (70-100); POTASSIUM SERUM 4.7 MEQ/L (3.5-5.1); SODIUM LEVEL 138 MEQ/L (136-145)
== END ==
PROVIDERS: ATTEND Internal Medicine
DX: D64.9 Anemia, unspecified (principal)

== ENCOUNTER 2019-04-18 10:18 | Outpatient (CLI) | payer MEDICARE ==
[~2019-04-18] VITALS: Ht 154.9 cm; Wt 68.9 kg
[2019-04-18] VITALS (9 sets, daily range): BP systolic 124–167; BP diastolic 60–70
[~2019-04-18 10:18] MED LIST changes: -BAYE325T16 PO; -HYDR-4517 PO; -POMA2CAP PO
[2019-04-18] MEDS ORDERED: SODIUM CHLORIDE 0.9% INJ 10 ML SYR IV ONE (11:00)
[2019-04-18] MEDS ORDERED: ACETAMINOPHEN TAB 650MG DOSE (2X325MG) PO ONE (11:00)
[2019-04-18] MEDS ORDERED: diphenhydrAMINE 25 MG CAP PO ONE (11:00)
[2019-04-18] MEDS ORDERED: SODIUM CHLORIDE 0.9% INJ 10 ML SYR IV PRN (11:00)
== END 2019-04-18 15:40 | disposition home or self-care (01) ==
LOC: M INFU 10:18
PROVIDERS: ATTEND Internal Medicine Hematology & Oncology
DX: D64.9 Anemia, unspecified (principal)
CPT/HCPCS: 36430; P9016

== ENCOUNTER → 2019-05-12 | Outpatient (REF) | payer MEDICARE ==
[~2019-05-12] MED LIST changes: +BAYE325T16 PO; +HYDR-4517 PO; +POMA2CAP PO
[2019-05-12 14:35] LABS: TOTAL PROTEIN,RANDOM URINE 60.2 MG/DL (0.0-12.0); URINE TOTAL PROTEIN 60.2 MG/DL (0-12)
[2019-05-13 06:07] LABS: TOTAL PROTEIN 24 HOUR URINE 331.1 MG/24HR (50-150); TOTAL VOLUME, URINE 550 ML
== END ==
LOC: M LAB REF 13:47
PROVIDERS: ATTEND Internal Medicine Hematology
DX: C90.00 Multiple myeloma not having achieved remission (principal)

== ENCOUNTER → 2019-05-16 | Outpatient (CLI) | payer MEDICARE ==
--- NOTE | 2019-05-16 13:52 | REP ---
Clinical: Multiple myeloma. Technique: Standard adult bone survey including radiographs of the axial and appendicular skeletal structures including the skull. 16 total images. Findings: Innumerable widespread lucent lesions are noted throughout the osseous structures most notably involving the calvarium, and pelvis of the although lucencies through the clavicles, ribs, vertebral bodies, humeri and left femur are also noted. These findings are relatively similar to prior examination and without obvious significant progression. Degenerative changes involving the spine including chronic anterolisthesis at the C3-4 level as well as chronic relatively stable compression deformities involving lower thoracic and lumbar vertebral bodies with stable alignment through the thoracic and lumbar spine maintained. Impression: 1. Innumerable widespread lucencies essentially unchanged and consistent with multiple myeloma. 2. Chronic diffuse degenerative changes including chronic stable compression deformities at multiple thoracic and lumbar vertebral bodies. 3. No obvious acute process as compared to prior examination. Electronically Signed by Naeem Levine MD 05/16/2019 01:44 P
--- NOTE | 2019-05-16 20:26 | ECHO ---
DATE OF PROCEDURE: 05/16/2019 Date of : 1950 Age: 69 REFERRING PHYSICIAN: Anthony Merida MD PATIENT LOCATION: Outpatient. REASON FOR ECHOCARDIOGRAM: Chemotherapy drug monitoring. 2D MEASUREMENTS: IVS: 1.1 cm LV: 5.0 cm LVPW: 0.9 cm LA: 4.6 cm Aorta: 2.4 cm RV: 3.6 cm IVC: 1.5 cm DOPPLER MEASUREMENTS: Peak velocity across the aortic valve: 2.2 m/s Peak gradient across the mitral valve: 8 mmHg Mitral E: 1.4, Mitral A: 0.9 with a ratio of 1.5 Maximum tricuspid valve velocity: 3.5 m/s 2D COMMENTS: 1. Normal left ventricular size, wall thickness, and normal global left ventricular systolic ejection fraction. The estimated global left ventricular systolic ejection fraction is 60-65%. 2. Mildly enlarged left atrium. The right atrium also appeared to be enlarged. Normal right ventricle. 3. The atrial septum appeared to be normal without evidence of defect or shunt. 4. Normal aortic root. 5. Trace pericardial effusion was noted, no evidence of cardiac tamponade. 6. Mildly calcified aortic valve without any significant restricted leaflet motion. Moderately calcified mitral annulus with normal anterior mitral leaflet motion. Normal tricuspid valve. The pulmonic valve and proximal pulmonary artery branches were not well visualized. 7. The inferior vena cava was normal in size, central venous pressure is most likely normal. DOPPLER: It detects trace aortic regurgitation, mild mitral regurgitation, and moderately severe tricuspid regurgitation as well as trace pulmonic regurgitation. The calculated pulmonary artery systolic pressure varies between 40-50 mmHg. Assessment of the left ventricular diastolic function appeared to be normal. IMPRESSION 1. Normal global left ventricular systolic and diastolic function. 2. Aortic valve sclerosis with trace aortic regurgitation and probably mild aortic stenosis. 3. Mitral annulus calcification with mildly enlarged left atrium and mitral annulus calcification, mild mitral regurgitation and probably mild calcific mitral stenosis. 4. Moderately severe tricuspid regurgitation with moderate pulmonary hypertension and dilated right atrium. 5. Trace pulmonic regurgitation detected. 6. Trace pericardial effusion noted, no evidence of cardiac tamponade.
== END ==
LOC: M CARPUL 12:01
PROVIDERS: ATTEND Internal Medicine Hematology
DX: C90.00 Multiple myeloma not having achieved remission (principal); M51.36 Other intervertebral disc degeneration, lumbar region; M51.34 Other intervertebral disc degeneration, thoracic region

== ENCOUNTER 2019-06-17 09:45 | Outpatient (CLI) | payer MEDICARE ==
[2019-06-17] VITALS (7 sets, daily range): BP systolic 118–158; BP diastolic 54–68
[~2019-06-17] VITALS: Ht 167.6 cm; Wt 72.2 kg
[~2019-06-17 09:45] MED LIST changes: +SODIUM CHLORIDE 0.9% INJ 10 ML SYR IV SCH
== END 2019-06-17 14:15 | disposition home or self-care (01) ==
LOC: M INFU 09:45
PROVIDERS: ATTEND Internal Medicine Hematology
DX: C90.00 Multiple myeloma not having achieved remission (principal)
CPT/HCPCS: 36430; P9016

== ENCOUNTER → 2019-07-25 | Outpatient (CLI) | payer MEDICARE ==
[~2019-07-25] MED LIST changes: +CLAR500T97 PO; +CYCL1CAP2 PO; +DECA4TAB PO; -MONT10TA2 PO; +MONT10TA4 PO; +POTA20TA6 PO; -SODIUM CHLORIDE 0.9% INJ 10 ML SYR IV SCH; +ZOFR4TAB16 PO
--- NOTE | 2019-07-25 14:00 | REP ---
Clinical: Chest pain. Dyspnea. Technique: PA and lateral. Comparison: 10/03/2014. Findings: [id number] identified with tip in the SVC. Evidence of prior sternotomy and CABG again noted. Lung aguirre demonstrate diffuse chronic interstitial changes primarily involving the left base. A relatively new opacities in the right base and medial right paramediastinal lower lung zone now identified. Impression: Relatively new areas of density / opacity at the right base. Possible consolidation and small pleural effusion. Follow-up to resolution and/or chest CT may be considered. Electronically Signed by Naeem Levine MD 07/25/2019 01:51 P
== END ==
LOC: M RAD 13:24
PROVIDERS: ATTEND Internal Medicine Hematology
DX: C90.00 Multiple myeloma not having achieved remission (principal)

== ENCOUNTER 2019-07-30 07:56 | Outpatient (CLI) | payer MEDICARE ==
[2019-07-30] VITALS (7 sets, daily range): BP systolic 134–163; BP diastolic 54–70
[~2019-07-30] VITALS: Ht 154.9 cm; Wt 68.9 kg
[2019-07-30] MEDS ORDERED: diphenhydrAMINE 50 MG CAP PO ONE (08:00)
[2019-07-30] MEDS ORDERED: ACETAMINOPHEN 325 MG TAB PO ONE (08:00)
[2019-07-30] MEDS ORDERED: SODIUM CHLORIDE 0.9% INJ 10 ML SYR IV SCH (09:00)
[2019-07-30] MEDS ORDERED: SODIUM CHLORIDE 0.9% INJ 10 ML SYR IV PRN (12:30)
== END 2019-07-30 12:40 | disposition home or self-care (01) ==
LOC: M INFU 07:56
PROVIDERS: ATTEND Internal Medicine Hematology
DX: C90.00 Multiple myeloma not having achieved remission (principal)
CPT/HCPCS: 36430; P9016

== ENCOUNTER → 2019-08-01 | Outpatient (CLI) | payer MEDICARE ==
--- NOTE | 2019-08-01 17:44 | REP ---
CT of the chest without IV contrast to evaluate for infiltrate: Comparisons are the chest CT of 04/25/2014 and portable plain film study dated 07/25/2019. On the comparison portable plain film study a right lung infiltrate was suspected. On the CT scan today there is an infiltrate in the medial basilar segment of the right lower lobe there is a small right pleural effusion. There is a small infiltrate in the lingular segment of the left upper lobe posteriorly. There are no nodules or masses. There are multiple calcified granulomas in the left hilus and subcarinal mediastinum. This is unchanged. There is no mediastinal lymph node enlargement. No axillary lymph node enlargement. In the absence of IV contrast the study is insensitive for hilar lymph node enlargement. The unenhanced thoracic aorta is unremarkable except for calcified atheroma. Cardiac size is enlarged. There is calcification of the mitral annulus. This is an interval change. There is a right IJ central venous catheter with the tip in the right atrium in satisfactory position. The Impression: There is an infiltrate in the medial basilar segment right lower lobe and a small right pleural effusion. There is a small infiltrate posteriorly in the lingula. These are changes from the prior study. Cardiac size is enlarged. There is calcification of the mitral annulus as an interval change. There is a right IJ central venous catheter as described. Electronically Signed by Kendall Arana MD 08/01/2019 05:36 P
== END ==
LOC: M RAD 16:37
PROVIDERS: ATTEND Internal Medicine Hematology
DX: R91.8 Other nonspecific abnormal finding of lung field (principal); C90.01 Multiple myeloma in remission

== ENCOUNTER → 2020-08-20 | Outpatient (REF) | payer MEDICARE ==
[~2020-08-20] MED LIST changes: -AMLO10TA5 PO; +AMLO1TAB25 PO; +KETO2CR TOP; +MONT10TA10 PO; -MONT10TA4 PO; +POMA3CAP PO
== END ==
LOC: M SFHCPLAZ 15:26
DX: E03.8 Other specified hypothyroidism (principal)

== ENCOUNTER → 2020-09-03 | Outpatient (REF) | payer MEDICARE | LOC: M LAB REF 09:12 | PROVIDERS: ATTEND Hospitalist | DX: E03.8 Other specified hypothyroidism (principal) ==

== ENCOUNTER 2021-06-27 07:40 | Inpatient (IN) | payer MEDICARE ==
[~2021-06-27] VITALS: Ht 154.9 cm; Wt 64.3 kg
[~2021-06-27 07:40] MED LIST changes: +ACYC1TAB PO; -ACYC400T PO; +FERR324T21 PO; -FERR325T16 PO; +IXAZ3CAP PO; +LEVO100C PO; -MONT10TA10 PO; +MONT10TA97 PO; +POTA-151 PO; -POTA20TA6 PO
[2021-06-27] MEDS ORDERED: ONDANSETRON 4MG/2ML VIAL IV ONE (07:50)
[2021-06-27] MEDS ORDERED: MORPHINE 2 MG/ML 1ML VIAL (J2270) IV PRN ×2 (07:50→12:00)
[2021-06-27] MEDS ORDERED: VITMTA PO (08:38)
[2021-06-27] MEDS ORDERED: HOME MED LIST COMPLETE! XX SCH (08:40)
[2021-06-27 10:24] LABS: BASO % 0.2 % (0.0-1.0); EOS % 0.2 % (0.0-3.0); HEMATOCRIT 31.4 % (36.0-47.0); HEMOGLOBIN 10.7 g/dl (12.0-15.5); LYMPH # 0.1 10^3/uL (1.5-5.0); LYMPH % 0.7 % (24.0-44.0); MEAN CORPUSCULAR HEMOGLOBIN 34.5 pg (27.0-33.0); MEAN CORPUSCULAR HGB CONC 34.1 g/dl (32.0-36.5); MEAN CORPUSCULAR VOLUME 101.3 fl (80.0-96.0); MONO # 0.8 10^3/uL (0.0-0.8); MONO % 6.6 % (2.0-8.0); NEUTROPHILS # 11.6 10^3/uL (1.5-8.5); NEUTROPHILS % 91.7 % (36.0-66.0); PLATELET COUNT, AUTOMATED 202 10^3/uL (150-450); WHITE BLOOD COUNT 12.7 10^3/uL (4.0-10.0)
[2021-06-27 10:36] LABS: INR 1.06; PROTHROMBIN TIME 14.2 SECONDS (12.7-14.5)
[2021-06-27 10:37] LABS: PARTIAL THROMBOPLASTIN TIME 41.5 SECONDS (25.9-37.0)
[2021-06-27 10:54] LABS: BLOOD UREA NITROGEN 22 MG/DL (7-18); CALCIUM LEVEL 9.4 MG/DL (8.8-10.2); CARBON DIOXIDE LEVEL 27 MEQ/L (21-32); CHLORIDE LEVEL 100 MEQ/L (98-107); CREATININE FOR GFR 0.71 MG/DL (0.55-1.30); GLOMERULAR FILTRATION RATE > 60.0 (>39); GLUCOSE, FASTING 107 MG/DL (70-100); POTASSIUM SERUM 3.9 MEQ/L (3.5-5.1); SODIUM LEVEL 135 MEQ/L (136-145)
[2021-06-27 12:04] LABS: ALBUMIN 2.9 GM/DL (3.2-5.2); ALT/SGPT 11 U/L (12-78); BILIRUBIN,DIRECT 0.3 MG/DL (0.0-0.2); BILIRUBIN,TOTAL 0.7 MG/DL (0.2-1.0); TOTAL PROTEIN 5.8 GM/DL (6.4-8.2)
[2021-06-27] MEDS: NS 1,000 ML IV SCH ×2 (13:46→18:04)
[2021-06-27] MEDS: PANTOPRAZOLE 40MG VIAL (C9113 PER 1) IV SCH (13:48)
[2021-06-27 16:45] VITALS: BP 176/92
[2021-06-27] MEDS ORDERED: MORPHINE 2 MG/ML 1ML VIAL (J2270) IV ONE (17:55)
[2021-06-27 22:11] VITALS: BP 159/73
[2021-06-27] MEDS: MORPHINE 2 MG/ML 1ML VIAL (J2270) IV PRN (22:42)
[2021-06-28] MEDS: MORPHINE 2 MG/ML 1ML VIAL (J2270) IV PRN (05:15)
[2021-06-28 05:32] VITALS: BP 162/66
[2021-06-28] MEDS ORDERED: SODIUM CHLORIDE 0.9% INJ 10 ML SYR IV PRN ×2 (06:00)
[2021-06-28] MEDS: SODIUM CHLORIDE 0.9% INJ 10 ML SYR IV SCH (09:21)
[2021-06-28] MEDS ORDERED: MORPHINE 4 MG/ML 1ML VIAL/SYRINGE (J2270) IV ONE (10:35)
[2021-06-28] MEDS ORDERED: NALOXONE INJ 0.4MG/1ML VIAL (J2310 PER 1MG) IV PRN (10:35)
[2021-06-28] MEDS: atenoloL 25 MG TAB PO SCH (10:52)
[2021-06-28] MEDS: PANTOPRAZOLE 40MG VIAL (C9113 PER 1) IV SCH (10:52)
[2021-06-28 12:08] LABS: HEMATOCRIT 28.7 % (36.0-47.0); HEMOGLOBIN 9.5 g/dl (12.0-15.5); MEAN CORPUSCULAR HEMOGLOBIN 34.5 pg (27.0-33.0); MEAN CORPUSCULAR HGB CONC 33.1 g/dl (32.0-36.5); MEAN CORPUSCULAR VOLUME 104.4 fl (80.0-96.0); PLATELET COUNT, AUTOMATED 189 10^3/uL (150-450); RED BLOOD COUNT 2.75 10^6/uL (4.00-5.40); WHITE BLOOD COUNT 7.7 10^3/uL (4.0-10.0)
[2021-06-28 12:40] LABS: ALBUMIN 2.6 GM/DL (3.2-5.2); ALT/SGPT 12 U/L (12-78); BILIRUBIN,TOTAL 0.5 MG/DL (0.2-1.0); BLOOD UREA NITROGEN 20 MG/DL (7-18); CALCIUM LEVEL 8.6 MG/DL (8.8-10.2); CARBON DIOXIDE LEVEL 25 MEQ/L (21-32); CHLORIDE LEVEL 106 MEQ/L (98-107); CREATININE FOR GFR 0.73 MG/DL (0.55-1.30); GLOMERULAR FILTRATION RATE > 60.0 (>39); GLUCOSE, FASTING 84 MG/DL (70-100); SODIUM LEVEL 137 MEQ/L (136-145); TOTAL PROTEIN 5.4 GM/DL (6.4-8.2)
[2021-06-28] MEDS ORDERED: EPINEPHrine INJ 1 MG/ML 1ML AMP As Ordered ONE (13:19)
[2021-06-28] MEDS ORDERED: ceFAZolin 1GM VIAL (J0690 PER 500MG) As Ordered ONE (13:19)
[2021-06-28] MEDS ORDERED: dexameTHASONE 4 MG/ML 1ML VIAL (J1100 PER 1MG) As Ordered ONE (13:26)
[2021-06-28] MEDS ORDERED: ONDANSETRON 4MG/2ML VIAL As Ordered ONE (13:26)
[2021-06-28] MEDS ORDERED: propofoL 200 MG/20 ML VIAL As Ordered ONE (13:26)
[2021-06-28] MEDS ORDERED: LIDOCAINE 2% 100MG/5ML SDV (FOR ANES.) As Ordered ONE (13:26)
[2021-06-28] MEDS ORDERED: fentaNYL 250 MCG/5 ML INJECTION As Ordered ONE (13:26)
[2021-06-28] MEDS ORDERED: MIDAZOLAM INJ 2MG/2ML VIAL (J2250 PER 1MG) As Ordered ONE (13:26)
[2021-06-28] MEDS ORDERED: ROCURONIUM BROMIDE 50 MG/5 ML VIAL As Ordered ONE (13:26)
[2021-06-28] MEDS ORDERED: BUPIVACAINE HCL 0.25% 10ML VIAL As Ordered ONE (14:10)
[2021-06-28] MEDS ORDERED: VANCOMYCIN 1000MG/20ML VIAL As Ordered ONE (14:11)
[2021-06-28] MEDS ORDERED: BUPIVACAINE LIPOSOME/PF 1.3% 20ML VIAL (13.3MG/ML)(EXPAREL)(C9290 PER1MG) As Ordered ONE (14:11)
[2021-06-28] MEDS ORDERED: TRANEXAMIC ACID 100 MG/ML 10ML VIAL As Ordered ONE (14:36)
[2021-06-28] MEDS ORDERED: SUGAMMADEX SODIUM 500 MG/5 ML VIAL (BRIDION) As Ordered ONE (15:03)
[2021-06-28] MEDS ORDERED: HYDROmorphone HCL 2MG/ML 1ML VIAL As Ordered ONE (15:03)
[2021-06-28] MEDS ORDERED: ceFAZolin 2 GM/D5W 50 ML IV BAG (J0690 PER 500MG) As Ordered ONE (15:07)
[2021-06-28] MEDS ORDERED: ACETAMINOPHEN 1000MG 100ML IV BTL (OFIRMEV) (J0131 PER 10MG) As Ordered ONE (15:28)
[2021-06-28] MEDS ORDERED: LR 1,000 ML IV SCH ×2 (17:25→18:10)
[2021-06-28] MEDS ORDERED: MEPERIDINE INJ 25 MG/ML VIAL (J2175) IV PRN (17:25)
[2021-06-28] MEDS ORDERED: ONDANSETRON 4MG/2ML VIAL IV PRN (17:25)
[2021-06-28] MEDS ORDERED: fentaNYL 100 MCG/2 ML INJECTION IV PRN (17:25)
[2021-06-28 18:15] VITALS: BP 131/53
[2021-06-28 18:45] VITALS: BP 119/56
[2021-06-28] MEDS ORDERED: ACETAMINOPHEN TAB 650MG DOSE (2X325MG) PO PRN (20:45)
[2021-06-28] MEDS: NYSTATIN 100,000 UNITS/GM TOPICAL PWD 15 GM TOP SCH (20:57)
[2021-06-28] MEDS ORDERED: NYSTATIN 100,000 UNITS/GM TOPICAL PWD 15 GM TOP SCH (21:00)
[2021-06-28 22:00] VITALS: BP 116/54
[2021-06-28] MEDS: ceFAZolin SOD 1 GM in D5W MINI-BAG PLUS 50 ML IV SCH (23:50)
[2021-06-29 05:34] VITALS: BP 118/48
[2021-06-29] MEDS: PERCOCET 5MG/325MG TAB PO PRN ×5 (06:11→21:52)
[2021-06-29] MEDS: HEPARIN SOD (PORCINE) 5000UNITS/ML 1ML VIAL/SYRINGE SQ SCH ×3 (06:11→21:52)
[2021-06-29] MEDS: ceFAZolin SOD 1 GM in D5W MINI-BAG PLUS 50 ML IV SCH (06:11)
[2021-06-29 07:05] LABS: HEMATOCRIT 24.6 % (36.0-47.0); HEMOGLOBIN 7.9 g/dl (12.0-15.5); MEAN CORPUSCULAR HEMOGLOBIN 33.8 pg (27.0-33.0); MEAN CORPUSCULAR HGB CONC 32.1 g/dl (32.0-36.5); MEAN CORPUSCULAR VOLUME 105.1 fl (80.0-96.0); PLATELET COUNT, AUTOMATED 198 10^3/uL (150-450); RED BLOOD COUNT 2.34 10^6/uL (4.00-5.40)
[2021-06-29 07:39] LABS: ALBUMIN 2.4 GM/DL (3.2-5.2); ALT/SGPT 11 U/L (12-78); BILIRUBIN,TOTAL 0.2 MG/DL (0.2-1.0); BLOOD UREA NITROGEN 24 MG/DL (7-18); CALCIUM LEVEL 8.4 MG/DL (8.8-10.2); CARBON DIOXIDE LEVEL 24 MEQ/L (21-32); CHLORIDE LEVEL 107 MEQ/L (98-107); CREATININE FOR GFR 0.97 MG/DL (0.55-1.30); GLOMERULAR FILTRATION RATE > 60.0 (>39); GLUCOSE, FASTING 111 MG/DL (70-100); POTASSIUM SERUM 3.9 MEQ/L (3.5-5.1); SODIUM LEVEL 137 MEQ/L (136-145); TOTAL PROTEIN 5.7 GM/DL (6.4-8.2)
[2021-06-29] MEDS ORDERED: MAGNESIUM CITRATE 300 ML BTL PO ONE (07:40)
[2021-06-29] MEDS: MIRALAX *UNIT DOSE* 17GM PACKET PO PRN ×2 (09:08→21:52)
[2021-06-29] MEDS: SODIUM CHLORIDE 0.9% INJ 10 ML SYR IV SCH (09:09)
[2021-06-29] MEDS: NYSTATIN 100,000 UNITS/GM TOPICAL PWD 15 GM TOP SCH ×2 (09:10→21:52)
[2021-06-29] MEDS: atenoloL 25 MG TAB PO SCH (09:11)
[2021-06-29] MEDS: MORPHINE 4 MG/ML 1ML VIAL/SYRINGE (J2270) IV PRN ×2 (09:12→15:21)
[2021-06-29 10:00] VITALS: BP 130/44
[2021-06-29] MEDS: PANTOPRAZOLE 40MG VIAL (C9113 PER 1) IV SCH (11:37)
[2021-06-29 12:21] LABS: HEMATOCRIT 25.4 % (36.0-47.0); HEMOGLOBIN 8.3 g/dl (12.0-15.5)
[2021-06-29 14:00] VITALS: BP 152/56
[2021-06-29 18:00] VITALS: BP 115/46
[2021-06-29] MEDS ORDERED: PERCOCET 5MG/325MG TAB PO PRN (19:35)
[2021-06-29 22:00] VITALS: BP 132/44
[2021-06-30] MEDS: PERCOCET 5MG/325MG TAB PO PRN (02:02)
[2021-06-30] MEDS: HEPARIN SOD (PORCINE) 5000UNITS/ML 1ML VIAL/SYRINGE SQ SCH ×3 (05:44→21:23)
[2021-06-30 05:46] VITALS: BP 136/46
[2021-06-30 06:37] LABS: HEMATOCRIT 25.4 % (36.0-47.0); HEMOGLOBIN 8.2 g/dl (12.0-15.5); MEAN CORPUSCULAR HEMOGLOBIN 34.6 pg (27.0-33.0); MEAN CORPUSCULAR HGB CONC 32.3 g/dl (32.0-36.5); MEAN CORPUSCULAR VOLUME 107.2 fl (80.0-96.0); PLATELET COUNT, AUTOMATED 174 10^3/uL (150-450); RED BLOOD COUNT 2.37 10^6/uL (4.00-5.40); WHITE BLOOD COUNT 6.7 10^3/uL (4.0-10.0)
[2021-06-30 07:08] LABS: ALBUMIN 2.3 GM/DL (3.2-5.2); ALT/SGPT 12 U/L (12-78); BILIRUBIN,TOTAL 0.2 MG/DL (0.2-1.0); BLOOD UREA NITROGEN 21 MG/DL (7-18); CALCIUM LEVEL 8.1 MG/DL (8.8-10.2); CARBON DIOXIDE LEVEL 24 MEQ/L (21-32); CHLORIDE LEVEL 106 MEQ/L (98-107); CREATININE FOR GFR 0.94 MG/DL (0.55-1.30); GLOMERULAR FILTRATION RATE > 60.0 (>39); GLUCOSE, FASTING 97 MG/DL (70-100); POTASSIUM SERUM 3.8 MEQ/L (3.5-5.1); SODIUM LEVEL 136 MEQ/L (136-145); TOTAL PROTEIN 5.6 GM/DL (6.4-8.2)
[2021-06-30] MEDS: atenoloL 25 MG TAB PO SCH (09:56)
[2021-06-30] MEDS: MIRALAX *UNIT DOSE* 17GM PACKET PO PRN (09:56)
[2021-06-30] MEDS: SODIUM CHLORIDE 0.9% INJ 10 ML SYR IV SCH (09:58)
[2021-06-30] MEDS: NYSTATIN 100,000 UNITS/GM TOPICAL PWD 15 GM TOP SCH ×2 (09:59→21:23)
[2021-06-30] MEDS: PANTOPRAZOLE 40MG TAB (PROTONIX) PO SCH (13:27)
[2021-06-30] MEDS: MORPHINE 30 MG TAB **MSIR PO SCH ×3 (13:28→21:24)
[2021-06-30 14:00] VITALS: BP 152/53
[2021-06-30 20:41] VITALS: BP 153/55
[2021-07-01] MEDS: MORPHINE 30 MG TAB **MSIR PO SCH ×4 (01:09→18:08)
[2021-07-01] MEDS: HEPARIN SOD (PORCINE) 5000UNITS/ML 1ML VIAL/SYRINGE SQ SCH ×3 (05:32→21:00)
[2021-07-01 05:46] VITALS: BP 146/69
[2021-07-01 09:00] VITALS: BP 96/57
[2021-07-01] MEDS: NYSTATIN 100,000 UNITS/GM TOPICAL PWD 15 GM TOP SCH ×2 (09:00→21:00)
[2021-07-01] MEDS: atenoloL 25 MG TAB PO SCH ×2 (09:00→10:56)
[2021-07-01] MEDS: SODIUM CHLORIDE 0.9% INJ 10 ML SYR IV SCH (09:00)
[2021-07-01] MEDS ORDERED: MOM 30ML SUSPENSION UDC PO PRN (09:15)
[2021-07-01] MEDS ORDERED: BISACODYL 10 MG SUPP PR PRN (09:15)
[2021-07-01] MEDS ORDERED: SENOKOT S TAB PO PRN (09:15)
[2021-07-01] MEDS ORDERED: ATEN25TA PO (09:44)
[2021-07-01] MEDS ORDERED: SENN-52 PO (09:44)
[2021-07-01] MEDS ORDERED: MSIR30TA PO (09:44)
[2021-07-01] MEDS ORDERED: MORP15TASA PO (09:44)
[2021-07-01] MEDS: MORPHINE 15 MG SA TAB PO SCH ×2 (10:50→20:59)
[2021-07-01] MEDS: PANTOPRAZOLE 40MG TAB (PROTONIX) PO SCH (10:50)
[2021-07-01 14:00] VITALS: BP 106/52
[2021-07-01] MEDS ORDERED: ONDANSETRON 4 MG ORAL DISINTEGRATING TAB PO PRN (19:50)
[2021-07-01 22:00] VITALS: BP 118/60
[2021-07-01] MEDS: NALOXONE INJ 0.4MG/1ML VIAL (J2310 PER 1MG) IV PRN ×2 (22:58→23:49)
[2021-07-01] MEDS ORDERED: PILL CUTTER 1 EACH XX PRN (23:00)
[2021-07-01] MEDS ORDERED: PROMETHAZINE INJ 25 MG/ML VIAL (J2550) IV ONE (23:00)
[2021-07-02] VITALS (12 sets, daily range): BP systolic 114–178; BP diastolic 56–73
[2021-07-02] MEDS ORDERED: MORPHINE 30 MG TAB **MSIR PO SCH
[2021-07-02 00:02] LABS: HEMATOCRIT 26.3 % (36.0-47.0); HEMOGLOBIN 8.6 g/dl (12.0-15.5); MEAN CORPUSCULAR HEMOGLOBIN 33.9 pg (27.0-33.0); MEAN CORPUSCULAR HGB CONC 32.7 g/dl (32.0-36.5); MEAN CORPUSCULAR VOLUME 103.5 fl (80.0-96.0); PLATELET COUNT, AUTOMATED 222 10^3/uL (150-450); RED BLOOD COUNT 2.54 10^6/uL (4.00-5.40); WHITE BLOOD COUNT 7.4 10^3/uL (4.0-10.0)
[2021-07-02 00:10] LABS: CK-MB VALUE MASS 1.5 NG/ML (<3.6); MB/CK RELATIVE INDEX 0.67 (< OR =4)
[2021-07-02] MEDS ORDERED: ISOVUE-370 76% 100ML VIAL As Ordered ONE (00:15)
[2021-07-02 00:22] LABS: ALBUMIN 2.5 GM/DL (3.2-5.2); ALT/SGPT 13 U/L (12-78); BILIRUBIN,TOTAL 0.4 MG/DL (0.2-1.0); BLOOD UREA NITROGEN 16 MG/DL (7-18); CALCIUM LEVEL 9.1 MG/DL (8.8-10.2); CARBON DIOXIDE LEVEL 31 MEQ/L (21-32); CHLORIDE LEVEL 99 MEQ/L (98-107); CREATININE FOR GFR 0.77 MG/DL (0.55-1.30); GLOMERULAR FILTRATION RATE > 60.0 (>39); GLUCOSE, FASTING 141 MG/DL (70-100); MAGNESIUM LEVEL 1.7 MG/DL (1.8-2.4); POTASSIUM SERUM 3.7 MEQ/L (3.5-5.1); SODIUM LEVEL 136 MEQ/L (136-145); TOTAL PROTEIN 5.7 GM/DL (6.4-8.2)
[2021-07-02] MEDS: NALOXONE INJ 0.4MG/1ML VIAL (J2310 PER 1MG) IV PRN (01:18)
[2021-07-02] MEDS ORDERED: KETOROLAC 30 MG/ML 1ML VIAL IV PRN (01:45)
[2021-07-02] MEDS ORDERED: NALOXONE HCL INJ 4 MG in D5W 496 ML IV SCH (03:00)
[2021-07-02] MEDS: HEPARIN SOD (PORCINE) 5000UNITS/ML 1ML VIAL/SYRINGE SQ SCH ×3 (05:41→21:56)
[2021-07-02 06:03] LABS: BLOOD UREA NITROGEN 16 MG/DL (7-18); CALCIUM LEVEL 9.7 MG/DL (8.8-10.2); CARBON DIOXIDE LEVEL 31 MEQ/L (21-32); CHLORIDE LEVEL 99 MEQ/L (98-107); CREATININE FOR GFR 0.85 MG/DL (0.55-1.30); GLOMERULAR FILTRATION RATE > 60.0 (>39); GLUCOSE, FASTING 145 MG/DL (70-100); MAGNESIUM LEVEL 1.9 MG/DL (1.8-2.4); POTASSIUM SERUM 3.5 MEQ/L (3.5-5.1); SODIUM LEVEL 135 MEQ/L (136-145)
[2021-07-02 06:35] LABS: BASO % 0.1 % (0.0-1.0); EOS % 0.5 % (0.0-3.0); HEMATOCRIT 25.5 % (36.0-47.0); HEMOGLOBIN 8.3 g/dl (12.0-15.5); LYMPH # 0.1 10^3/uL (1.5-5.0); LYMPH % 0.9 % (24.0-44.0); MEAN CORPUSCULAR HEMOGLOBIN 33.7 pg (27.0-33.0); MEAN CORPUSCULAR HGB CONC 32.5 g/dl (32.0-36.5); MEAN CORPUSCULAR VOLUME 103.7 fl (80.0-96.0); MONO # 0.7 10^3/uL (0.0-0.8); MONO % 8.7 % (2.0-8.0); NEUTROPHILS # 6.8 10^3/uL (1.5-8.5); NEUTROPHILS % 89.5 % (36.0-66.0); PLATELET COUNT, AUTOMATED 235 10^3/uL (150-450); RED BLOOD COUNT 2.46 10^6/uL (4.00-5.40); WHITE BLOOD COUNT 7.6 10^3/uL (4.0-10.0)
[2021-07-02] MEDS ORDERED: FLEET ENEMA PR ONE (10:00)
[2021-07-02] MEDS: SODIUM CHLORIDE 0.9% INJ 10 ML SYR IV SCH (10:49)
[2021-07-02] MEDS: KETOROLAC 30 MG/ML 1ML VIAL IV SCH ×3 (10:51→21:56)
[2021-07-02] MEDS: NYSTATIN 100,000 UNITS/GM TOPICAL PWD 15 GM TOP SCH ×2 (10:52→21:55)
[2021-07-02] MEDS ORDERED: ACETAMINOPHEN 650 MG SUPP PR ONE (14:00)
[2021-07-02] MEDS ORDERED: NS 1,000 ML IV ONE (14:30)
[2021-07-02] MEDS: KCL 40MEQ IN D5/0.45NS 1000ML 1,000 ML IV SCH (15:44)
[2021-07-03] MEDS: KCL 40MEQ IN D5/0.45NS 1000ML 1,000 ML IV SCH ×3 (01:39→22:32)
[2021-07-03] MEDS: KETOROLAC 30 MG/ML 1ML VIAL IV SCH (03:48)
[2021-07-03] MEDS: HEPARIN SOD (PORCINE) 5000UNITS/ML 1ML VIAL/SYRINGE SQ SCH ×3 (05:41→20:48)
[2021-07-03 06:00] VITALS: BP 146/55
[2021-07-03] MEDS: SODIUM CHLORIDE 0.9% INJ 10 ML SYR IV SCH (08:14)
[2021-07-03] MEDS: NYSTATIN 100,000 UNITS/GM TOPICAL PWD 15 GM TOP SCH ×2 (08:15→20:48)
[2021-07-03] MEDS: ACETAMINOPHEN TAB 650MG DOSE (2X325MG) PO PRN ×2 (12:20→20:48)
[2021-07-03] MEDS: LIDOCAINE 5% (LIDODERM) PATCH TD SCH (12:21)
[2021-07-03 14:31] VITALS: BP 154/68
[2021-07-03] MEDS ORDERED: **NOTE PATIENT COMMENT** MISC XX SCH (21:00)
[2021-07-03 22:00] VITALS: BP 143/68
[2021-07-04] MEDS: ACETAMINOPHEN TAB 650MG DOSE (2X325MG) PO PRN ×2 (03:23→11:18)
[2021-07-04] MEDS: HEPARIN SOD (PORCINE) 5000UNITS/ML 1ML VIAL/SYRINGE SQ SCH (05:49)
[2021-07-04 06:00] VITALS: BP 150/67
[2021-07-04 07:09] LABS: HEMOGLOBIN 7.3 g/dl (12.0-15.5); MEAN CORPUSCULAR HEMOGLOBIN 33.5 pg (27.0-33.0); MEAN CORPUSCULAR HGB CONC 31.7 g/dl (32.0-36.5); MEAN CORPUSCULAR VOLUME 105.5 fl (80.0-96.0); PLATELET COUNT, AUTOMATED 212 10^3/uL (150-450); RED BLOOD COUNT 2.18 10^6/uL (4.00-5.40); WHITE BLOOD COUNT 6.9 10^3/uL (4.0-10.0)
[2021-07-04 07:41] LABS: BLOOD UREA NITROGEN 9 MG/DL (7-18); CALCIUM LEVEL 8.9 MG/DL (8.8-10.2); CARBON DIOXIDE LEVEL 27 MEQ/L (21-32); CHLORIDE LEVEL 107 MEQ/L (98-107); CREATININE FOR GFR 0.67 MG/DL (0.55-1.30); GLOMERULAR FILTRATION RATE > 60.0 (>39); GLUCOSE, FASTING 97 MG/DL (70-100); POTASSIUM SERUM 4.6 MEQ/L (3.5-5.1); SODIUM LEVEL 140 MEQ/L (136-145)
[2021-07-04] MEDS: LIDOCAINE 5% (LIDODERM) PATCH TD SCH (08:33)
[2021-07-04] MEDS: SODIUM CHLORIDE 0.9% INJ 10 ML SYR IV SCH (08:33)
[2021-07-04] MEDS: NYSTATIN 100,000 UNITS/GM TOPICAL PWD 15 GM TOP SCH (08:34)
[2021-07-04] MEDS ORDERED: FLEET ENEMA PR ONE (09:00)
[2021-07-04] MEDS ORDERED: BISACODYL 10 MG SUPP PR SCH (09:00)
[2021-07-04] MEDS ORDERED: HEPA500023 SQ (09:53)
[2021-07-04 11:16] LABS: HEMATOCRIT 26.5 % (36.0-47.0); HEMOGLOBIN 8.5 g/dl (12.0-15.5)
[2021-07-04 12:30] LABS: PERCENT SATURATION 11.4 % (13.2-45.0)
[2021-07-20] MEDS ORDERED: HYDR-3719 (14:00)
[2021-07-20] MEDS ORDERED: HYDR-3719 PO ×2 (14:09→17:17)
== END 2021-07-04 13:30 | DRG 480 ==
LOC: EDBD 07:40 → M ED 09:11 → M ED INP 11:56 → ENRESERV 14:40 → M MS5PR 17:36 → M PCU 07-02 01:38 → M MS5PR 07-02 16:03
PROVIDERS: ADMIT Internal Medicine; ATTEND General Practice
PROC: 0QR70JZ Replacement of Left Upper Femur with Synthetic Substitute, Open Approach (ICD-10-PCS; principal; 2021-06-28 12:00)
DX: M84.452A Pathological fracture, left femur, initial encounter for fracture (principal); G92.8 Other toxic encephalopathy; C90.00 Multiple myeloma not having achieved remission; C79.51 Secondary malignant neoplasm of bone; C34.2 Malignant neoplasm of middle lobe, bronchus or lung; I13.0 Hypertensive heart and chronic kidney disease with heart failure and stage 1 through stage 4 chronic kidney disease, or unspecified chronic kidney disease; K56.7 Ileus, unspecified; I25.10 Atherosclerotic heart disease of native coronary artery without angina pectoris; Z95.5 Presence of coronary angioplasty implant and graft; N18.9 Chronic kidney disease, unspecified; D50.9 Iron deficiency anemia, unspecified; K59.09 Other constipation; E03.9 Hypothyroidism, unspecified; I50.9 Heart failure, unspecified; Z79.899 Other long term (current) drug therapy; G62.9 Polyneuropathy, unspecified; E21.3 Hyperparathyroidism, unspecified; Z87.891 Personal history of nicotine dependence; Z86.16 Personal history of COVID-19; Z96.641 Presence of right artificial hip joint; D63.0 Anemia in neoplastic disease; T40.605A Adverse effect of unspecified narcotics, initial encounter

== ENCOUNTER 2021-07-04 10:22 | Inpatient (IN) | payer MEDICARE ==
[~2021-07-04] VITALS: Ht 165.1 cm; Wt 65.0 kg
[~2021-07-04 10:22] MED LIST changes: +ATEN25TA PO; +HEPA500023 SQ; +MORP15TASA PO; +MSIR30TA PO; +SENN-52 PO; +VITMTA PO
[2021-07-04] MEDS ORDERED: NALOXONE INJ 0.4MG/1ML VIAL (J2310 PER 1MG) IV PRN (10:40)
[2021-07-04 13:30] VITALS: BP 162/67
[2021-07-04] MEDS ORDERED: HOME MED LIST COMPLETE! XX SCH (14:25)
[2021-07-04] MEDS: REMEDY PHYTOPLEX Z-GUARD PASTE 113GM TUBE (FROM STOREROOM PRODUCT) TOP SCH ×2 (16:00→20:49)
[2021-07-04] MEDS: PANTOPRAZOLE 40MG TAB (PROTONIX) PO SCH (16:29)
[2021-07-04] MEDS: MORPHINE 30 MG TAB **MSIR PO PRN (16:32)
[2021-07-04] MEDS: atenoloL 25 MG TAB PO SCH (16:33)
[2021-07-04] MEDS: ACETAMINOPHEN 500 MG TAB PO SCH ×2 (16:34→20:49)
[2021-07-04] MEDS: HEPARIN SOD (PORCINE) 5000UNITS/ML 1ML VIAL/SYRINGE SC SCH ×2 (16:35→20:49)
[2021-07-04] MEDS: MULTIVITAMINS/MINERALS THERAP 1 TAB PO SCH (16:38)
[2021-07-04] MEDS ORDERED: SODIUM CHLORIDE 0.9% INJ 10 ML SYR IV PRN (19:15)
[2021-07-04 19:46] VITALS: BP 140/63
[2021-07-04] MEDS: SENNA 8.6 MG TAB (SENOKOT) PO SCH (20:48)
[2021-07-04] MEDS: MORPHINE 15 MG SA TAB PO SCH (20:48)
[2021-07-04] MEDS: DOCUSATE SODIUM 100MG CAPSULE PO SCH (20:48)
[2021-07-04] MEDS: NYSTATIN 100,000 UNITS/GM TOPICAL PWD 15 GM TOP SCH (20:49)
[2021-07-04] MEDS: **NOTE PATIENT COMMENT** MISC XX SCH (20:52)
[2021-07-05 05:36] VITALS: BP 145/61
[2021-07-05] MEDS: LEVOTHYROXINE 100MCG TABLET (0.1MG) PO SCH (05:39)
[2021-07-05] MEDS: HEPARIN SOD (PORCINE) 5000UNITS/ML 1ML VIAL/SYRINGE SC SCH ×3 (05:40→21:12)
[2021-07-05 07:37] LABS: BASO % 0.4 % (0.0-1.0); EOS # 0.2 10^3/uL (0.0-0.5); EOS % 3.4 % (0.0-3.0); HEMATOCRIT 23.4 % (36.0-47.0); HEMOGLOBIN 7.5 g/dl (12.0-15.5); LYMPH # 0.1 10^3/uL (1.5-5.0); LYMPH % 2.3 % (24.0-44.0); MEAN CORPUSCULAR HEMOGLOBIN 33.8 pg (27.0-33.0); MEAN CORPUSCULAR HGB CONC 32.1 g/dl (32.0-36.5); MEAN CORPUSCULAR VOLUME 105.4 fl (80.0-96.0); MONO # 0.7 10^3/uL (0.0-0.8); MONO % 14.3 % (2.0-8.0); NEUTROPHILS # 3.8 10^3/uL (1.5-8.5); PLATELET COUNT, AUTOMATED 225 10^3/uL (150-450); RED BLOOD COUNT 2.22 10^6/uL (4.00-5.40); WHITE BLOOD COUNT 4.8 10^3/uL (4.0-10.0)
[2021-07-05 08:28] LABS: ALBUMIN 2.2 GM/DL (3.2-5.2); ALT/SGPT 14 U/L (12-78); BILIRUBIN,TOTAL 0.2 MG/DL (0.2-1.0); BLOOD UREA NITROGEN 12 MG/DL (7-18); CALCIUM LEVEL 9.4 MG/DL (8.8-10.2); CARBON DIOXIDE LEVEL 27 MEQ/L (21-32); CHLORIDE LEVEL 106 MEQ/L (98-107); CREATININE FOR GFR 0.84 MG/DL (0.55-1.30); GLOMERULAR FILTRATION RATE > 60.0 (>39); GLUCOSE, FASTING 85 MG/DL (70-100); POTASSIUM SERUM 4.3 MEQ/L (3.5-5.1); SODIUM LEVEL 138 MEQ/L (136-145); TOTAL PROTEIN 5.8 GM/DL (6.4-8.2)
[2021-07-05] MEDS: REMEDY PHYTOPLEX Z-GUARD PASTE 113GM TUBE (FROM STOREROOM PRODUCT) TOP SCH ×3 (09:00→21:00)
[2021-07-05] MEDS: DOCUSATE SODIUM 100MG CAPSULE PO SCH ×2 (09:22→21:12)
[2021-07-05] MEDS: MORPHINE 15 MG SA TAB PO SCH (09:24)
[2021-07-05] MEDS: atenoloL 25 MG TAB PO SCH (09:24)
[2021-07-05] MEDS: ACETAMINOPHEN 500 MG TAB PO SCH ×3 (09:25→21:12)
[2021-07-05] MEDS: PANTOPRAZOLE 40MG TAB (PROTONIX) PO SCH (09:25)
[2021-07-05] MEDS: MULTIVITAMINS/MINERALS THERAP 1 TAB PO SCH (09:25)
[2021-07-05] MEDS: SODIUM CHLORIDE 0.9% INJ 10 ML SYR IV SCH (09:26)
[2021-07-05] MEDS: LIDOCAINE 5% (LIDODERM) PATCH TD SCH (09:27)
[2021-07-05] MEDS: NYSTATIN 100,000 UNITS/GM TOPICAL PWD 15 GM TOP SCH ×2 (09:28→21:13)
[2021-07-05 14:00] VITALS: BP 136/60
[2021-07-05] MEDS: MORPHINE 30 MG TAB **MSIR PO PRN ×2 (15:01→23:18)
[2021-07-05 15:53] LABS: HEMATOCRIT 22.7 % (36.0-47.0); HEMOGLOBIN 7.4 g/dl (12.0-15.5)
[2021-07-05] MEDS ORDERED: FUROSEMIDE 20MG/2ML VIAL (J1940) IV ONE (16:50)
[2021-07-05 20:00] VITALS: BP 128/64
[2021-07-05] MEDS: **NOTE PATIENT COMMENT** MISC XX SCH (21:00)
[2021-07-05] MEDS: SENNA 8.6 MG TAB (SENOKOT) PO SCH (21:12)
[2021-07-05 22:15] VITALS: BP 127/58
[2021-07-05 22:30] VITALS: BP 129/60
[2021-07-05 23:15] VITALS: BP 141/65
[2021-07-06] VITALS: BP 155/68
[2021-07-06 01:00] VITALS: BP 135/64
[2021-07-06] MEDS: ONDANSETRON 4 MG TAB PO PRN (03:22)
[2021-07-06] MEDS: HEPARIN SOD (PORCINE) 5000UNITS/ML 1ML VIAL/SYRINGE SC SCH ×3 (05:55→21:23)
[2021-07-06] MEDS: LEVOTHYROXINE 100MCG TABLET (0.1MG) PO SCH (05:55)
[2021-07-06 06:00] VITALS: BP 129/60
[2021-07-06 06:18] LABS: BASO % 0.4 % (0.0-1.0); EOS # 0.1 10^3/uL (0.0-0.5); EOS % 2.3 % (0.0-3.0); HEMATOCRIT 30.4 % (36.0-47.0); LYMPH # 0.1 10^3/uL (1.5-5.0); LYMPH % 2.2 % (24.0-44.0); MEAN CORPUSCULAR HEMOGLOBIN 31.8 pg (27.0-33.0); MEAN CORPUSCULAR HGB CONC 32.2 g/dl (32.0-36.5); MEAN CORPUSCULAR VOLUME 98.7 fl (80.0-96.0); MONO # 0.6 10^3/uL (0.0-0.8); NEUTROPHILS # 4.3 10^3/uL (1.5-8.5); NEUTROPHILS % 83.1 % (36.0-66.0); PLATELET COUNT, AUTOMATED 225 10^3/uL (150-450); RED BLOOD COUNT 3.08 10^6/uL (4.00-5.40); WHITE BLOOD COUNT 5.1 10^3/uL (4.0-10.0)
[2021-07-06 06:19] LABS: HEMOGLOBIN 9.8 g/dl (12.0-15.5)
[2021-07-06 06:43] LABS: CALCIUM LEVEL 9.6 MG/DL (8.8-10.2); CREATININE FOR GFR 1.06 MG/DL (0.55-1.30); GLOMERULAR FILTRATION RATE 54.2 (>39); POTASSIUM SERUM 4.4 MEQ/L (3.5-5.1)
[2021-07-06] MEDS: PANTOPRAZOLE 40MG TAB (PROTONIX) PO SCH ×2 (07:53→21:24)
[2021-07-06] MEDS: DOCUSATE SODIUM 100MG CAPSULE PO SCH ×2 (07:53→21:24)
[2021-07-06] MEDS: atenoloL 25 MG TAB PO SCH (07:53)
[2021-07-06] MEDS: MULTIVITAMINS/MINERALS THERAP 1 TAB PO SCH (07:53)
[2021-07-06] MEDS: NYSTATIN 100,000 UNITS/GM TOPICAL PWD 15 GM TOP SCH ×2 (07:54→21:25)
[2021-07-06] MEDS: ACETAMINOPHEN 500 MG TAB PO SCH ×3 (07:54→21:24)
[2021-07-06] MEDS: LIDOCAINE 5% (LIDODERM) PATCH TD SCH (07:54)
[2021-07-06] MEDS: REMEDY PHYTOPLEX Z-GUARD PASTE 113GM TUBE (FROM STOREROOM PRODUCT) TOP SCH ×3 (07:55→21:25)
[2021-07-06] MEDS: SODIUM CHLORIDE 0.9% INJ 10 ML SYR IV SCH (07:56)
[2021-07-06 14:00] VITALS: BP 130/62
[2021-07-06] MEDS: SUCRALFATE 1 GM TAB PO SCH ×2 (16:46→21:50)
[2021-07-06 20:00] VITALS: BP 108/52
[2021-07-06] MEDS: SENNA 8.6 MG TAB (SENOKOT) PO SCH (21:24)
[2021-07-06] MEDS: **NOTE PATIENT COMMENT** MISC XX SCH (21:25)
[2021-07-07 04:22] VITALS: BP 110/58
[2021-07-07] MEDS: LEVOTHYROXINE 100MCG TABLET (0.1MG) PO SCH (06:09)
[2021-07-07] MEDS: HEPARIN SOD (PORCINE) 5000UNITS/ML 1ML VIAL/SYRINGE SC SCH ×3 (06:09→21:00)
[2021-07-07] MEDS: DOCUSATE SODIUM 100MG CAPSULE PO SCH ×2 (08:42→20:50)
[2021-07-07] MEDS: MULTIVITAMINS/MINERALS THERAP 1 TAB PO SCH (08:42)
[2021-07-07] MEDS: PANTOPRAZOLE 40MG TAB (PROTONIX) PO SCH ×2 (08:42→20:51)
[2021-07-07] MEDS: ACETAMINOPHEN 500 MG TAB PO SCH ×3 (08:43→20:51)
[2021-07-07] MEDS: LIDOCAINE 5% (LIDODERM) PATCH TD SCH (08:43)
[2021-07-07] MEDS: NYSTATIN 100,000 UNITS/GM TOPICAL PWD 15 GM TOP SCH ×2 (08:44→20:52)
[2021-07-07] MEDS: REMEDY PHYTOPLEX Z-GUARD PASTE 113GM TUBE (FROM STOREROOM PRODUCT) TOP SCH ×3 (08:44→20:55)
[2021-07-07] MEDS: atenoloL 25 MG TAB PO SCH (08:45)
[2021-07-07] MEDS: SODIUM CHLORIDE 0.9% INJ 10 ML SYR IV SCH (08:45)
[2021-07-07] MEDS: SUCRALFATE 1 GM TAB PO SCH ×4 (08:46→20:50)
[2021-07-07] MEDS: MORPHINE 30 MG TAB **MSIR PO PRN (10:29)
[2021-07-07 14:00] VITALS: BP 134/69
[2021-07-07 20:44] VITALS: BP 140/70
[2021-07-07] MEDS: SENNA 8.6 MG TAB (SENOKOT) PO SCH (20:51)
[2021-07-07] MEDS: **NOTE PATIENT COMMENT** MISC XX SCH (20:55)
[2021-07-08 05:17] VITALS: BP 132/68
[2021-07-08] MEDS: SUCRALFATE 1 GM TAB PO SCH ×4 (06:39→16:14)
[2021-07-08] MEDS: HEPARIN SOD (PORCINE) 5000UNITS/ML 1ML VIAL/SYRINGE SC SCH ×3 (06:39→21:08)
[2021-07-08] MEDS: LEVOTHYROXINE 100MCG TABLET (0.1MG) PO SCH (06:39)
[2021-07-08] MEDS: MULTIVITAMINS/MINERALS THERAP 1 TAB PO SCH (08:17)
[2021-07-08] MEDS: atenoloL 25 MG TAB PO SCH (08:17)
[2021-07-08] MEDS: ACETAMINOPHEN 500 MG TAB PO SCH ×4 (08:18→22:24)
[2021-07-08] MEDS: PANTOPRAZOLE 40MG TAB (PROTONIX) PO SCH ×2 (08:18→21:03)
[2021-07-08] MEDS: SODIUM CHLORIDE 0.9% INJ 10 ML SYR IV SCH (08:19)
[2021-07-08] MEDS: DOCUSATE SODIUM 100MG CAPSULE PO SCH ×2 (08:20→21:00)
[2021-07-08] MEDS: NYSTATIN 100,000 UNITS/GM TOPICAL PWD 15 GM TOP SCH ×2 (08:21→21:04)
[2021-07-08] MEDS: REMEDY PHYTOPLEX Z-GUARD PASTE 113GM TUBE (FROM STOREROOM PRODUCT) TOP SCH ×3 (08:21→21:04)
[2021-07-08] MEDS: LIDOCAINE 5% (LIDODERM) PATCH TD SCH (08:28)
[2021-07-08 13:27] LABS: BASO % 0.3 % (0.0-1.0); EOS # 0.2 10^3/uL (0.0-0.5); EOS % 2.3 % (0.0-3.0); HEMATOCRIT 27.2 % (36.0-47.0); HEMOGLOBIN 8.8 g/dl (12.0-15.5); LYMPH # 0.2 10^3/uL (1.5-5.0); LYMPH % 3.3 % (24.0-44.0); MEAN CORPUSCULAR HEMOGLOBIN 31.9 pg (27.0-33.0); MEAN CORPUSCULAR HGB CONC 32.4 g/dl (32.0-36.5); MEAN CORPUSCULAR VOLUME 98.6 fl (80.0-96.0); MONO # 0.7 10^3/uL (0.0-0.8); MONO % 10.2 % (2.0-8.0); NEUTROPHILS # 5.4 10^3/uL (1.5-8.5); NEUTROPHILS % 81.9 % (36.0-66.0); PLATELET COUNT, AUTOMATED 208 10^3/uL (150-450); RED BLOOD COUNT 2.76 10^6/uL (4.00-5.40); WHITE BLOOD COUNT 6.6 10^3/uL (4.0-10.0)
[2021-07-08 14:24] LABS: BLOOD UREA NITROGEN 20 MG/DL (7-18); CALCIUM LEVEL 9.1 MG/DL (8.8-10.2); CARBON DIOXIDE LEVEL 29 MEQ/L (21-32); CHLORIDE LEVEL 104 MEQ/L (98-107); CREATININE FOR GFR 0.91 MG/DL (0.55-1.30); GLOMERULAR FILTRATION RATE > 60.0 (>39); GLUCOSE, FASTING 100 MG/DL (70-100); POTASSIUM SERUM 3.4 MEQ/L (3.5-5.1); SODIUM LEVEL 139 MEQ/L (136-145)
[2021-07-08] MEDS: SIMETHICONE 80MG CHEW TAB PO SCH ×2 (15:34→21:03)
[2021-07-08] MEDS ORDERED: POTASSIUM CHLORIDE 10MEQ SR TABLET PO ONE (15:40)
[2021-07-08 17:15] VITALS: BP 160/80
[2021-07-08 20:40] VITALS: BP 174/72
[2021-07-08] MEDS: SENNA 8.6 MG TAB (SENOKOT) PO SCH (21:00)
[2021-07-08] MEDS: MORPHINE 30 MG TAB **MSIR PO PRN (21:03)
[2021-07-08] MEDS: **NOTE PATIENT COMMENT** MISC XX SCH (21:04)
[2021-07-08 23:32] VITALS: BP 148/70
[2021-07-09 05:12] VITALS: BP 146/65
[2021-07-09] MEDS: LEVOTHYROXINE 100MCG TABLET (0.1MG) PO SCH (05:18)
[2021-07-09] MEDS: HEPARIN SOD (PORCINE) 5000UNITS/ML 1ML VIAL/SYRINGE SC SCH ×3 (05:18→20:33)
[2021-07-09] MEDS: MAGNESIUM OXIDE 400MG TAB (MAG-OX) PO SCH (09:14)
[2021-07-09] MEDS: MULTIVITAMINS/MINERALS THERAP 1 TAB PO SCH (09:14)
[2021-07-09] MEDS: PANTOPRAZOLE 40MG TAB (PROTONIX) PO SCH ×2 (09:14→20:33)
[2021-07-09] MEDS: ACETAMINOPHEN 500 MG TAB PO SCH ×3 (09:14→20:33)
[2021-07-09] MEDS: SIMETHICONE 80MG CHEW TAB PO SCH ×3 (09:14→20:32)
[2021-07-09] MEDS: DOCUSATE SODIUM 100MG CAPSULE PO SCH ×2 (09:14→20:33)
[2021-07-09] MEDS: LIDOCAINE 5% (LIDODERM) PATCH TD SCH (09:15)
[2021-07-09] MEDS: MORPHINE 30 MG TAB **MSIR PO PRN ×2 (09:16→16:49)
[2021-07-09] MEDS: SUCRALFATE 1 GM TAB PO SCH ×4 (09:22→20:33)
[2021-07-09] MEDS: atenoloL 25 MG TAB PO SCH (09:30)
[2021-07-09] MEDS: SODIUM CHLORIDE 0.9% INJ 10 ML SYR IV SCH (09:32)
[2021-07-09] MEDS: NYSTATIN 100,000 UNITS/GM TOPICAL PWD 15 GM TOP SCH ×2 (09:33→20:34)
[2021-07-09] MEDS: REMEDY PHYTOPLEX Z-GUARD PASTE 113GM TUBE (FROM STOREROOM PRODUCT) TOP SCH ×3 (09:33→20:34)
[2021-07-09 10:26] LABS: BLOOD UREA NITROGEN 15 MG/DL (7-18); CALCIUM LEVEL 9.1 MG/DL (8.8-10.2); CARBON DIOXIDE LEVEL 30 MEQ/L (21-32); CHLORIDE LEVEL 107 MEQ/L (98-107); GLOMERULAR FILTRATION RATE > 60.0 (>39); GLUCOSE, FASTING 94 MG/DL (70-100); POTASSIUM SERUM 3.8 MEQ/L (3.5-5.1); SODIUM LEVEL 142 MEQ/L (136-145)
[2021-07-09 14:00] VITALS: BP 133/63
[2021-07-09 20:00] VITALS: BP 140/61
[2021-07-09] MEDS: SENNA 8.6 MG TAB (SENOKOT) PO SCH (20:33)
[2021-07-09] MEDS: **NOTE PATIENT COMMENT** MISC XX SCH (20:34)
[2021-07-10] MEDS: LEVOTHYROXINE 100MCG TABLET (0.1MG) PO SCH (05:09)
[2021-07-10] MEDS: HEPARIN SOD (PORCINE) 5000UNITS/ML 1ML VIAL/SYRINGE SC SCH ×3 (05:09→21:25)
[2021-07-10 06:00] VITALS: BP 145/67
[2021-07-10] MEDS: MORPHINE 30 MG TAB **MSIR PO PRN ×2 (07:34→14:43)
[2021-07-10] MEDS: SUCRALFATE 1 GM TAB PO SCH ×4 (07:34→20:42)
[2021-07-10] MEDS: DOCUSATE SODIUM 100MG CAPSULE PO SCH ×2 (08:26→21:22)
[2021-07-10] MEDS: SIMETHICONE 80MG CHEW TAB PO SCH ×3 (08:26→20:38)
[2021-07-10] MEDS: MAGNESIUM OXIDE 400MG TAB (MAG-OX) PO SCH (08:26)
[2021-07-10] MEDS: atenoloL 25 MG TAB PO SCH (08:26)
[2021-07-10] MEDS: MULTIVITAMINS/MINERALS THERAP 1 TAB PO SCH (08:27)
[2021-07-10] MEDS: ACETAMINOPHEN 500 MG TAB PO SCH ×3 (08:27→21:24)
[2021-07-10] MEDS: SODIUM CHLORIDE 0.9% INJ 10 ML SYR IV SCH (08:27)
[2021-07-10] MEDS: PANTOPRAZOLE 40MG TAB (PROTONIX) PO SCH ×2 (08:27→20:38)
[2021-07-10] MEDS: NYSTATIN 100,000 UNITS/GM TOPICAL PWD 15 GM TOP SCH ×2 (08:28→21:26)
[2021-07-10] MEDS: LIDOCAINE 5% (LIDODERM) PATCH TD SCH (08:28)
[2021-07-10] MEDS: REMEDY PHYTOPLEX Z-GUARD PASTE 113GM TUBE (FROM STOREROOM PRODUCT) TOP SCH ×3 (08:28→21:00)
[2021-07-10 14:00] VITALS: BP 123/59
[2021-07-10 18:30] LABS: HEMATOCRIT 29.4 % (36.0-47.0); HEMOGLOBIN 9.3 g/dl (12.0-15.5); MEAN CORPUSCULAR HEMOGLOBIN 31.6 pg (27.0-33.0); MEAN CORPUSCULAR HGB CONC 31.6 g/dl (32.0-36.5); PLATELET COUNT, AUTOMATED 222 10^3/uL (150-450); RED BLOOD COUNT 2.94 10^6/uL (4.00-5.40); WHITE BLOOD COUNT 5.8 10^3/uL (4.0-10.0)
[2021-07-10 20:00] VITALS: BP 150/67
[2021-07-10] MEDS: SENNA 8.6 MG TAB (SENOKOT) PO SCH (20:38)
[2021-07-10] MEDS: ONDANSETRON 4 MG TAB PO PRN (20:41)
[2021-07-10] MEDS: **NOTE PATIENT COMMENT** MISC XX SCH (21:25)
[2021-07-11 06:00] VITALS: BP 145/65
[2021-07-11] MEDS: SUCRALFATE 1 GM TAB PO SCH ×4 (06:00→21:05)
[2021-07-11] MEDS: LEVOTHYROXINE 100MCG TABLET (0.1MG) PO SCH (06:01)
[2021-07-11] MEDS: HEPARIN SOD (PORCINE) 5000UNITS/ML 1ML VIAL/SYRINGE SC SCH ×3 (06:02→21:05)
[2021-07-11] MEDS: MORPHINE 30 MG TAB **MSIR PO PRN ×3 (06:03→21:07)
[2021-07-11] MEDS: MULTIVITAMINS/MINERALS THERAP 1 TAB PO SCH (08:45)
[2021-07-11] MEDS: DOCUSATE SODIUM 100MG CAPSULE PO SCH ×2 (08:45→21:05)
[2021-07-11] MEDS: MAGNESIUM OXIDE 400MG TAB (MAG-OX) PO SCH (08:45)
[2021-07-11] MEDS: ACETAMINOPHEN 500 MG TAB PO SCH ×3 (08:46→21:05)
[2021-07-11] MEDS: SODIUM CHLORIDE 0.9% INJ 10 ML SYR IV SCH (08:46)
[2021-07-11] MEDS: SIMETHICONE 80MG CHEW TAB PO SCH ×3 (08:46→21:05)
[2021-07-11] MEDS: PANTOPRAZOLE 40MG TAB (PROTONIX) PO SCH ×2 (08:47→21:05)
[2021-07-11] MEDS: atenoloL 25 MG TAB PO SCH (08:47)
[2021-07-11] MEDS: REMEDY PHYTOPLEX Z-GUARD PASTE 113GM TUBE (FROM STOREROOM PRODUCT) TOP SCH ×3 (08:48→21:08)
[2021-07-11] MEDS: LIDOCAINE 5% (LIDODERM) PATCH TD SCH (08:48)
[2021-07-11] MEDS: NYSTATIN 100,000 UNITS/GM TOPICAL PWD 15 GM TOP SCH ×2 (08:48→21:08)
[2021-07-11 10:31] LABS: HEMATOCRIT 31.3 % (36.0-47.0); HEMOGLOBIN 9.7 g/dl (12.0-15.5); MEAN CORPUSCULAR HEMOGLOBIN 31.5 pg (27.0-33.0); MEAN CORPUSCULAR VOLUME 101.6 fl (80.0-96.0); PLATELET COUNT, AUTOMATED 228 10^3/uL (150-450); RED BLOOD COUNT 3.08 10^6/uL (4.00-5.40); WHITE BLOOD COUNT 7.1 10^3/uL (4.0-10.0)
[2021-07-11 10:57] LABS: BLOOD UREA NITROGEN 19 MG/DL (7-18); CALCIUM LEVEL 10.5 MG/DL (8.8-10.2); CARBON DIOXIDE LEVEL 30 MEQ/L (21-32); CHLORIDE LEVEL 102 MEQ/L (98-107); CREATININE FOR GFR 0.96 MG/DL (0.55-1.30); GLOMERULAR FILTRATION RATE > 60.0 (>39); GLUCOSE, FASTING 98 MG/DL (70-100); POTASSIUM SERUM 4.6 MEQ/L (3.5-5.1); SODIUM LEVEL 139 MEQ/L (136-145)
[2021-07-11 14:00] VITALS: BP 127/59
[2021-07-11 20:09] VITALS: BP 131/59
[2021-07-11] MEDS: SENNA 8.6 MG TAB (SENOKOT) PO SCH (21:05)
[2021-07-11] MEDS: **NOTE PATIENT COMMENT** MISC XX SCH (21:08)
[2021-07-11] MEDS: MIRALAX *UNIT DOSE* 17GM PACKET PO PRN (23:26)
[2021-07-12 05:35] VITALS: BP 122/58
[2021-07-12] MEDS: HEPARIN SOD (PORCINE) 5000UNITS/ML 1ML VIAL/SYRINGE SC SCH ×3 (05:52→20:41)
[2021-07-12] MEDS: LEVOTHYROXINE 100MCG TABLET (0.1MG) PO SCH (05:52)
[2021-07-12] MEDS: MULTIVITAMINS/MINERALS THERAP 1 TAB PO SCH (07:27)
[2021-07-12] MEDS: PANTOPRAZOLE 40MG TAB (PROTONIX) PO SCH ×2 (07:27→20:40)
[2021-07-12] MEDS: SIMETHICONE 80MG CHEW TAB PO SCH ×3 (07:27→20:40)
[2021-07-12] MEDS: DOCUSATE SODIUM 100MG CAPSULE PO SCH ×2 (07:27→20:40)
[2021-07-12] MEDS: MAGNESIUM OXIDE 400MG TAB (MAG-OX) PO SCH (07:27)
[2021-07-12] MEDS: SUCRALFATE 1 GM TAB PO SCH ×4 (07:28→20:40)
[2021-07-12] MEDS: MIRALAX *UNIT DOSE* 17GM PACKET PO PRN (07:28)
[2021-07-12] MEDS: atenoloL 25 MG TAB PO SCH (07:28)
[2021-07-12] MEDS: ACETAMINOPHEN 500 MG TAB PO SCH ×3 (07:28→20:40)
[2021-07-12] MEDS: SODIUM CHLORIDE 0.9% INJ 10 ML SYR IV SCH (07:29)
[2021-07-12] MEDS: LIDOCAINE 5% (LIDODERM) PATCH TD SCH (07:30)
[2021-07-12] MEDS: NYSTATIN 100,000 UNITS/GM TOPICAL PWD 15 GM TOP SCH ×2 (07:30→20:38)
[2021-07-12] MEDS: REMEDY PHYTOPLEX Z-GUARD PASTE 113GM TUBE (FROM STOREROOM PRODUCT) TOP SCH ×3 (07:30→20:39)
[2021-07-12] MEDS: MORPHINE 30 MG TAB **MSIR PO PRN (09:33)
[2021-07-12 14:00] VITALS: BP 136/64
[2021-07-12] MEDS ORDERED: FLEET ENEMA PR ONE (15:55)
[2021-07-12] MEDS: MIRALAX *UNIT DOSE* 17GM PACKET PO SCH (16:36)
[2021-07-12 20:00] VITALS: BP 120/53
[2021-07-12] MEDS: **NOTE PATIENT COMMENT** MISC XX SCH (20:39)
[2021-07-12] MEDS ORDERED: SENNA 8.6 MG TAB (SENOKOT) PO SCH (21:00)
[2021-07-13] MEDS: LEVOTHYROXINE 100MCG TABLET (0.1MG) PO SCH (05:28)
[2021-07-13] MEDS: HEPARIN SOD (PORCINE) 5000UNITS/ML 1ML VIAL/SYRINGE SC SCH (05:28)
[2021-07-13 06:15] VITALS: BP 148/66
[2021-07-13] MEDS: SUCRALFATE 1 GM TAB PO SCH (07:30)
[2021-07-13] MEDS: PANTOPRAZOLE 40MG TAB (PROTONIX) PO SCH (08:20)
[2021-07-13] MEDS: DOCUSATE SODIUM 100MG CAPSULE PO SCH (08:20)
[2021-07-13] MEDS: LIDOCAINE 5% (LIDODERM) PATCH TD SCH (08:20)
[2021-07-13] MEDS: MULTIVITAMINS/MINERALS THERAP 1 TAB PO SCH (08:20)
[2021-07-13] MEDS: MAGNESIUM OXIDE 400MG TAB (MAG-OX) PO SCH (08:21)
[2021-07-13] MEDS: SIMETHICONE 80MG CHEW TAB PO SCH (08:21)
[2021-07-13 08:22] VITALS: BP 148/66
[2021-07-13] MEDS: atenoloL 25 MG TAB PO SCH (08:22)
[2021-07-13] MEDS: ACETAMINOPHEN 500 MG TAB PO SCH (08:22)
[2021-07-13] MEDS: MORPHINE 30 MG TAB **MSIR PO PRN (08:23)
[2021-07-13] MEDS: MIRALAX *UNIT DOSE* 17GM PACKET PO SCH (09:00)
[2021-07-13] MEDS: SODIUM CHLORIDE 0.9% INJ 10 ML SYR IV SCH (09:00)
[2021-07-13] MEDS: REMEDY PHYTOPLEX Z-GUARD PASTE 113GM TUBE (FROM STOREROOM PRODUCT) TOP SCH (09:00)
[2021-07-13] MEDS: NYSTATIN 100,000 UNITS/GM TOPICAL PWD 15 GM TOP SCH (09:00)
[2021-07-13] MEDS ORDERED: MSIR30TA PO (10:19)
[2021-07-13] MEDS ORDERED: PANT40TA29 PO (10:19)
[2021-07-13] MEDS ORDERED: MAGN400T2 PO (10:19)
[2021-07-13] MEDS ORDERED: LEVO100C PO (10:19)
[2021-07-13] MEDS ORDERED: MI-A80CH PO (10:19)
[2021-07-13] MEDS ORDERED: SENN18TA PO (10:19)
[2021-07-13] MEDS ORDERED: SUCR1TA PO (10:19)
[2021-07-13] MEDS ORDERED: MIRA1POW3 PO (10:19)
[2021-07-13] MEDS ORDERED: ATEN25TA PO (10:19)
[2021-07-13] MEDS ORDERED: ASPI81TA26 PO (10:24)
== END 2021-07-13 11:38 | disposition home health service (06) | DRG 560 ==
LOC: M PM&R 13:30
PROVIDERS: ADMIT Physical Medicine & Rehabilitation; ATTEND Physical Medicine & Rehabilitation
DX: M84.552D Pathological fracture in neoplastic disease, left femur, subsequent encounter for fracture with routine healing (principal); C90.00 Multiple myeloma not having achieved remission; C79.51 Secondary malignant neoplasm of bone; N25.81 Secondary hyperparathyroidism of renal origin; D50.9 Iron deficiency anemia, unspecified; N18.9 Chronic kidney disease, unspecified; G62.0 Drug-induced polyneuropathy; I50.9 Heart failure, unspecified; E03.9 Hypothyroidism, unspecified; I25.10 Atherosclerotic heart disease of native coronary artery without angina pectoris; Z95.1 Presence of aortocoronary bypass graft; Z74.09 Other reduced mobility; Z74.1 Need for assistance with personal care; Z96.641 Presence of right artificial hip joint; Z79.891 Long term (current) use of opiate analgesic; Z79.899 Other long term (current) drug therapy; Z92.21 Personal history of antineoplastic chemotherapy; Z87.891 Personal history of nicotine dependence

== ENCOUNTER 2021-07-29 08:59 | Inpatient (IN) | payer MEDICARE ==
[~2021-07-29] VITALS: Ht 154.9 cm; Wt 65.1 kg
[2021-07-29] VITALS (7 sets, daily range): BP systolic 78–138; BP diastolic 37–54
[~2021-07-29 08:59] MED LIST changes: +ASPI81TA26 PO; +HYDR-3719; +HYDR-3719 PO; +MAGN400T2 PO; +MI-A80CH PO; +MIRA1POW3 PO; +PANT40TA29 PO; +SENN18TA PO; +SUCR1TA PO
[2021-07-29] MEDS ORDERED: NS 500 ML IV ONE ×3 (09:30→20:45)
[2021-07-29] MEDS: HYDROMORPHONE HCL 0.5 MG/ 0.5 ML SYRINGE (J1170 PER 1) IV PRN ×2 (10:00→11:08)
[2021-07-29 10:24] LABS: BASO # 0.1 10^3/uL (0.0-0.2); BASO % 0.7 % (0.0-1.0); EOS # 0.1 10^3/uL (0.0-0.5); HEMATOCRIT 30.7 % (36.0-47.0); HEMOGLOBIN 9.7 g/dl (12.0-15.5); LYMPH # 0.3 10^3/uL (1.5-5.0); LYMPH % 3.6 % (24.0-44.0); MEAN CORPUSCULAR HEMOGLOBIN 32.1 pg (27.0-33.0); MEAN CORPUSCULAR HGB CONC 31.6 g/dl (32.0-36.5); MEAN CORPUSCULAR VOLUME 101.7 fl (80.0-96.0); MONO # 0.9 10^3/uL (0.0-0.8); MONO % 13.3 % (2.0-8.0); NEUTROPHILS # 5.5 10^3/uL (1.5-8.5); PLATELET COUNT, AUTOMATED 214 10^3/uL (150-450); RED BLOOD COUNT 3.02 10^6/uL (4.00-5.40); WHITE BLOOD COUNT 6.9 10^3/uL (4.0-10.0)
[2021-07-29 10:49] LABS: BLOOD UREA NITROGEN 16 MG/DL (7-18); CALCIUM LEVEL 9.7 MG/DL (8.8-10.2); CARBON DIOXIDE LEVEL 31 MEQ/L (21-32); CHLORIDE LEVEL 104 MEQ/L (98-107); CREATININE FOR GFR 0.93 MG/DL (0.55-1.30); GLOMERULAR FILTRATION RATE > 60.0 (>39); GLUCOSE, FASTING 106 MG/DL (70-100); POTASSIUM SERUM 3.6 MEQ/L (3.5-5.1); SODIUM LEVEL 144 MEQ/L (136-145)
[2021-07-29] MEDS ORDERED: HYDROMORPHONE HCL 0.5 MG/ 0.5 ML SYRINGE (J1170 PER 1) IV ONE (12:30)
[2021-07-29] MEDS ORDERED: MORPHINE 10 MG/ML 1ML VIAL (J2270) IV ONE (14:00)
[2021-07-29] MEDS ORDERED: cloNIDine 0.1MG TABLET PO ONE (14:45)
[2021-07-29] MEDS ORDERED: KETOROLAC 30 MG/ML 1ML VIAL IV ONE (14:45)
[2021-07-29] MEDS ORDERED: **hydrALAZINE** 50 MG TAB PO ONE (15:00)
[2021-07-29] MEDS ORDERED: traMADol 50 MG TAB PO ONE (15:00)
[2021-07-29] MEDS ORDERED: PURE500C5 PO (15:02)
[2021-07-29] MEDS ORDERED: B-122500 PO (15:02)
[2021-07-29] MEDS ORDERED: HOME MED LIST COMPLETE! XX SCH (15:05)
[2021-07-29] MEDS ORDERED: ISOSORBIDE DIN. (ISORDIL) 20 MG TAB PO ONE (16:00)
[2021-07-29] MEDS: ACETAMINOPHEN 500 MG TAB PO SCH ×2 (17:03→21:00)
[2021-07-29] MEDS ORDERED: MORPHINE 10 MG/ML 1ML VIAL (J2270) IV PRN (18:00)
[2021-07-29] MEDS ORDERED: ISOSORBIDE DIN. (ISORDIL) 20 MG TAB PO SCH (18:00)
[2021-07-29] MEDS: **hydrALAZINE HCL** 25 MG TAB PO SCH (20:48)
[2021-07-29 21:31] LABS: HEMATOCRIT 22.4 % (36.0-47.0)
[2021-07-29 21:32] LABS: HEMOGLOBIN 7.1 g/dl (12.0-15.5)
[2021-07-29] MEDS: ISOSORBIDE DIN. (ISORDIL) 20 MG TAB PO SCH (23:53)
[2021-07-30 00:35] VITALS: BP 99/41
[2021-07-30 01:23] VITALS: BP 120/49
[2021-07-30] MEDS ORDERED: NS 1,000 ML IV SCH (01:30)
[2021-07-30 02:25] VITALS: BP 119/50
[2021-07-30] MEDS: **hydrALAZINE HCL** 25 MG TAB PO SCH (02:34)
[2021-07-30] MEDS ORDERED: traMADol 50 MG TAB PO ONE (02:35)
[2021-07-30 06:00] VITALS: BP 121/56
[2021-07-30] MEDS: ISOSORBIDE DIN. (ISORDIL) 20 MG TAB PO SCH (06:00)
[2021-07-30 06:58] LABS: BASO % 0.6 % (0.0-1.0); EOS # 0.1 10^3/uL (0.0-0.5); EOS % 1.3 % (0.0-3.0); HEMATOCRIT 28.7 % (36.0-47.0); LYMPH # 0.2 10^3/uL (1.5-5.0); LYMPH % 3.7 % (24.0-44.0); MEAN CORPUSCULAR HEMOGLOBIN 31.7 pg (27.0-33.0); MEAN CORPUSCULAR HGB CONC 32.1 g/dl (32.0-36.5); MONO # 0.8 10^3/uL (0.0-0.8); MONO % 13.4 % (2.0-8.0); NEUTROPHILS % 80.5 % (36.0-66.0); PLATELET COUNT, AUTOMATED 156 10^3/uL (150-450); WHITE BLOOD COUNT 6.3 10^3/uL (4.0-10.0)
[2021-07-30 07:01] LABS: HEMOGLOBIN 9.2 g/dl (12.0-15.5)
[2021-07-30 07:19] LABS: BLOOD UREA NITROGEN 19 MG/DL (7-18); CALCIUM LEVEL 9.1 MG/DL (8.8-10.2); CARBON DIOXIDE LEVEL 24 MEQ/L (21-32); CHLORIDE LEVEL 109 MEQ/L (98-107); CK-MB VALUE MASS < 1.0 NG/ML (<3.6); CPK CREATINE PHOSPHOKINASE 67 U/L (26-192); CREATININE FOR GFR 0.92 MG/DL (0.55-1.30); GLOMERULAR FILTRATION RATE > 60.0 (>39); GLUCOSE, FASTING 87 MG/DL (70-100); MB/CK RELATIVE INDEX 1.49 (< OR =4); NT-PRO BNP 6620 PG/ML (<125); POTASSIUM SERUM 3.5 MEQ/L (3.5-5.1); SODIUM LEVEL 144 MEQ/L (136-145)
[2021-07-30] MEDS: traMADol 50 MG TAB PO PRN ×2 (08:52→16:03)
[2021-07-30] MEDS: ACETAMINOPHEN 500 MG TAB PO SCH ×3 (08:52→20:19)
[2021-07-30] MEDS ORDERED: ENOXAPARIN 40MG/0.4ML SYRINGE (J1650 PER 10MG) SC ONE (11:00)
[2021-07-30 14:00] VITALS: BP 115/50
[2021-07-30 22:00] VITALS: BP 152/69
[2021-07-31] VITALS (8 sets, daily range): BP systolic 105–142; BP diastolic 40–88; O2SAT 96
[2021-07-31] MEDS: traMADol 50 MG TAB PO PRN ×3 (03:51→23:35)
[2021-07-31] MEDS ORDERED: amLODIPine 5 MG TAB PO ONE (07:15)
[2021-07-31] MEDS ORDERED: MORPHINE 10 MG/ML 1ML VIAL (J2270) IV ONE (07:30)
[2021-07-31] MEDS ORDERED: LIDOCAINE W/EPINEPHRINE 1% 20ML VIAL As Ordered ONE (08:00)
[2021-07-31] MEDS ORDERED: D5W/0.45% SODIUM CHLORIDE 1,000 ML IV SCH (08:00)
[2021-07-31] MEDS ORDERED: propofoL 200 MG/20 ML VIAL As Ordered ONE (09:06)
[2021-07-31] MEDS ORDERED: fentaNYL 100 MCG/2 ML INJECTION As Ordered ONE (09:06)
[2021-07-31] MEDS ORDERED: LIDOCAINE 2% 100MG/5ML SDV (FOR ANES.) As Ordered ONE (09:06)
[2021-07-31] MEDS ORDERED: dexameTHASONE 4 MG/ML 1ML VIAL (J1100 PER 1MG) As Ordered ONE (09:06)
[2021-07-31] MEDS ORDERED: MIDAZOLAM INJ 2MG/2ML VIAL (J2250 PER 1MG) As Ordered ONE (09:06)
[2021-07-31] MEDS ORDERED: ROCURONIUM BROMIDE 50 MG/5 ML VIAL As Ordered ONE (09:06)
[2021-07-31] MEDS ORDERED: ONDANSETRON 4MG/2ML VIAL As Ordered ONE (09:06)
[2021-07-31] MEDS ORDERED: ACETAMINOPHEN 1000MG 100ML IV BTL (OFIRMEV) (J0131 PER 10MG) As Ordered ONE (09:06)
[2021-07-31] MEDS ORDERED: SUGAMMADEX SODIUM 500 MG/5 ML VIAL (BRIDION) As Ordered ONE (09:14)
[2021-07-31] MEDS ORDERED: HYDROmorphone HCL 2MG/ML 1ML VIAL As Ordered ONE (09:15)
[2021-07-31] MEDS ORDERED: ceFAZolin 2 GM/D5W 50 ML IV BAG (J0690 PER 500MG) IV ONE (09:20)
[2021-07-31] MEDS ORDERED: TRANEXAMIC ACID 100 MG/ML 10ML VIAL As Ordered ONE ×2 (09:49→10:08)
[2021-07-31] MEDS ORDERED: LR 1,000 ML IV SCH (11:25)
[2021-07-31] MEDS ORDERED: ONDANSETRON 4MG/2ML VIAL IV PRN (11:25)
[2021-07-31] MEDS ORDERED: METOCLOPRAMIDE INJ 10MG/2ML VIAL (J2765 PER 1) IV PRN (11:25)
[2021-07-31] MEDS ORDERED: fentaNYL 100 MCG/2 ML INJECTION IV PRN (11:25)
[2021-07-31] MEDS ORDERED: HYDROMORPHONE HCL 0.5 MG/ 0.5 ML SYRINGE (J1170 PER 1) IV PRN (11:25)
[2021-07-31] MEDS ORDERED: oxyCODONE 5MG TAB PO PRN (11:25)
[2021-07-31] MEDS: ACETAMINOPHEN 500 MG TAB PO SCH ×3 (11:47→20:19)
[2021-07-31 13:55] LABS: BASO % 0.2 % (0.0-1.0); EOS % 0.1 % (0.0-3.0); HEMATOCRIT 31.9 % (36.0-47.0); LYMPH # 0.2 10^3/uL (1.5-5.0); LYMPH % 2.1 % (24.0-44.0); MEAN CORPUSCULAR HEMOGLOBIN 31.7 pg (27.0-33.0); MEAN CORPUSCULAR HGB CONC 31.3 g/dl (32.0-36.5); MEAN CORPUSCULAR VOLUME 101.3 fl (80.0-96.0); MONO # 0.3 10^3/uL (0.0-0.8); MONO % 3.4 % (2.0-8.0); NEUTROPHILS # 8.9 10^3/uL (1.5-8.5); NEUTROPHILS % 93.7 % (36.0-66.0); PLATELET COUNT, AUTOMATED 170 10^3/uL (150-450); RED BLOOD COUNT 3.15 10^6/uL (4.00-5.40); WHITE BLOOD COUNT 9.5 10^3/uL (4.0-10.0)
[2021-07-31] MEDS: MULTIVITAMINS/MINERALS THERAP 1 TAB PO SCH (14:03)
[2021-07-31] MEDS: LEVOTHYROXINE 100MCG TABLET (0.1MG) PO SCH (14:03)
[2021-07-31] MEDS: CYANOCOBALAMIN 500 MCG TAB PO SCH (14:04)
[2021-07-31] MEDS: atenoloL 25 MG TAB PO SCH (14:04)
[2021-07-31 14:17] LABS: ERYTHROCYTE SEDIMENTATION RATE 75 mm/hr (0-30)
[2021-07-31 14:23] LABS: ALBUMIN 2.6 GM/DL (3.2-5.2); ALT/SGPT 10 U/L (12-78); BILIRUBIN,TOTAL 0.4 MG/DL (0.2-1.0); BLOOD UREA NITROGEN 18 MG/DL (7-18); C REACTIVE PROTEIN QUANTITATIV 9.05 MG/DL (0.00-0.30); CALCIUM LEVEL 9.1 MG/DL (8.8-10.2); CARBON DIOXIDE LEVEL 23 MEQ/L (21-32); CHLORIDE LEVEL 102 MEQ/L (98-107); CREATININE FOR GFR 0.87 MG/DL (0.55-1.30); GLOMERULAR FILTRATION RATE > 60.0 (>39); GLUCOSE, FASTING 180 MG/DL (70-100); POTASSIUM SERUM 3.3 MEQ/L (3.5-5.1); SODIUM LEVEL 135 MEQ/L (136-145); TOTAL PROTEIN 5.4 GM/DL (6.4-8.2)
[2021-07-31] MEDS ORDERED: NS 500 ML IV ONE (17:00)
[2021-07-31] MEDS: ceFAZolin SOD 1 GM in D5W MINI-BAG PLUS 50 ML IV SCH (17:32)
[2021-07-31] MEDS ORDERED: NS 1,000 ML IV ONE (19:55)
[2021-08-01] VITALS (10 sets, daily range): BP systolic 117–156; BP diastolic 46–95; O2SAT 95–96
[2021-08-01] MEDS: ceFAZolin SOD 1 GM in D5W MINI-BAG PLUS 50 ML IV SCH ×2 (01:44→09:11)
[2021-08-01 04:48] LABS: BASO % 0.1 % (0.0-1.0); HEMATOCRIT 24.5 % (36.0-47.0); LYMPH # 0.2 10^3/uL (1.5-5.0); LYMPH % 2.3 % (24.0-44.0); MEAN CORPUSCULAR HEMOGLOBIN 30.9 pg (27.0-33.0); MEAN CORPUSCULAR HGB CONC 31.4 g/dl (32.0-36.5); MEAN CORPUSCULAR VOLUME 98.4 fl (80.0-96.0); MONO # 1.2 10^3/uL (0.0-0.8); MONO % 13.6 % (2.0-8.0); NEUTROPHILS # 7.6 10^3/uL (1.5-8.5); NEUTROPHILS % 83.6 % (36.0-66.0); PLATELET COUNT, AUTOMATED 173 10^3/uL (150-450); RED BLOOD COUNT 2.49 10^6/uL (4.00-5.40)
[2021-08-01 04:53] LABS: HEMOGLOBIN 7.7 g/dl (12.0-15.5)
[2021-08-01 05:11] LABS: BLOOD UREA NITROGEN 18 MG/DL (7-18); CALCIUM LEVEL 9.3 MG/DL (8.8-10.2); CARBON DIOXIDE LEVEL 24 MEQ/L (21-32); CHLORIDE LEVEL 107 MEQ/L (98-107); CREATININE FOR GFR 0.87 MG/DL (0.55-1.30); GLOMERULAR FILTRATION RATE > 60.0 (>39); GLUCOSE, FASTING 90 MG/DL (70-100); POTASSIUM SERUM 3.7 MEQ/L (3.5-5.1); SODIUM LEVEL 141 MEQ/L (136-145)
[2021-08-01] MEDS: LEVOTHYROXINE 100MCG TABLET (0.1MG) PO SCH (05:14)
[2021-08-01] MEDS: traMADol 50 MG TAB PO PRN ×3 (05:14→18:18)
[2021-08-01] MEDS: atenoloL 25 MG TAB PO SCH ×2 (09:00→09:10)
[2021-08-01] MEDS: amLODIPine 5 MG TAB PO SCH (09:00)
[2021-08-01] MEDS: ACETAMINOPHEN 500 MG TAB PO SCH ×3 (09:06→21:00)
[2021-08-01] MEDS: CYANOCOBALAMIN 500 MCG TAB PO SCH (09:07)
[2021-08-01] MEDS: MULTIVITAMINS/MINERALS THERAP 1 TAB PO SCH (09:11)
[2021-08-01 10:07] LABS: HEMATOCRIT 22.9 % (36.0-47.0); HEMOGLOBIN 7.4 g/dl (12.0-15.5)
[2021-08-02] MEDS: LEVOTHYROXINE 100MCG TABLET (0.1MG) PO SCH (04:03)
[2021-08-02] MEDS: traMADol 50 MG TAB PO PRN ×3 (04:03→21:18)
[2021-08-02 05:56] LABS: BASO % 0.4 % (0.0-1.0); EOS # 0.3 10^3/uL (0.0-0.5); EOS % 3.4 % (0.0-3.0); HEMATOCRIT 29.2 % (36.0-47.0); HEMOGLOBIN 9.6 g/dl (12.0-15.5); LYMPH # 0.3 10^3/uL (1.5-5.0); LYMPH % 3.5 % (24.0-44.0); MEAN CORPUSCULAR HEMOGLOBIN 30.9 pg (27.0-33.0); MEAN CORPUSCULAR HGB CONC 32.9 g/dl (32.0-36.5); MEAN CORPUSCULAR VOLUME 93.9 fl (80.0-96.0); MONO % 12.7 % (2.0-8.0); NEUTROPHILS # 6.5 10^3/uL (1.5-8.5); NEUTROPHILS % 79.3 % (36.0-66.0); PLATELET COUNT, AUTOMATED 156 10^3/uL (150-450); RED BLOOD COUNT 3.11 10^6/uL (4.00-5.40); WHITE BLOOD COUNT 8.2 10^3/uL (4.0-10.0)
[2021-08-02 06:00] VITALS: BP 146/66
[2021-08-02 06:17] LABS: BLOOD UREA NITROGEN 15 MG/DL (7-18); CARBON DIOXIDE LEVEL 25 MEQ/L (21-32); CHLORIDE LEVEL 107 MEQ/L (98-107); CREATININE FOR GFR 0.79 MG/DL (0.55-1.30); GLOMERULAR FILTRATION RATE > 60.0 (>39); GLUCOSE, FASTING 83 MG/DL (70-100); POTASSIUM SERUM 3.5 MEQ/L (3.5-5.1); SODIUM LEVEL 140 MEQ/L (136-145)
[2021-08-02] MEDS: atenoloL 25 MG TAB PO SCH (08:26)
[2021-08-02] MEDS: ACETAMINOPHEN 500 MG TAB PO SCH ×3 (08:26→21:18)
[2021-08-02] MEDS: amLODIPine 5 MG TAB PO SCH (08:26)
[2021-08-02] MEDS: MULTIVITAMINS/MINERALS THERAP 1 TAB PO SCH (08:26)
[2021-08-02] MEDS: CYANOCOBALAMIN 500 MCG TAB PO SCH (08:27)
[2021-08-02] MEDS ORDERED: ENOXAPARIN 40MG/0.4ML SYRINGE (J1650 PER 10MG) SC SCH (09:00)
[2021-08-02 14:00] VITALS: BP 142/64
[2021-08-02 21:00] VITALS: O2SAT 94
[2021-08-02 22:00] VITALS: BP 121/49
[2021-08-03] MEDS: LEVOTHYROXINE 100MCG TABLET (0.1MG) PO SCH (05:23)
[2021-08-03] MEDS: traMADol 50 MG TAB PO PRN (05:24)
[2021-08-03 06:00] VITALS: BP 166/72
[2021-08-03 06:01] LABS: BASO % 0.6 % (0.0-1.0); EOS # 0.3 10^3/uL (0.0-0.5); EOS % 4.3 % (0.0-3.0); HEMATOCRIT 28.3 % (36.0-47.0); HEMOGLOBIN 9.2 g/dl (12.0-15.5); LYMPH # 0.2 10^3/uL (1.5-5.0); LYMPH % 2.7 % (24.0-44.0); MEAN CORPUSCULAR HGB CONC 32.5 g/dl (32.0-36.5); MEAN CORPUSCULAR VOLUME 95.3 fl (80.0-96.0); MONO # 0.9 10^3/uL (0.0-0.8); NEUTROPHILS # 5.7 10^3/uL (1.5-8.5); NEUTROPHILS % 79.3 % (36.0-66.0); PLATELET COUNT, AUTOMATED 164 10^3/uL (150-450); RED BLOOD COUNT 2.97 10^6/uL (4.00-5.40); WHITE BLOOD COUNT 7.2 10^3/uL (4.0-10.0)
[2021-08-03 06:20] LABS: BLOOD UREA NITROGEN 11 MG/DL (7-18); CALCIUM LEVEL 9.7 MG/DL (8.8-10.2); CARBON DIOXIDE LEVEL 28 MEQ/L (21-32); CHLORIDE LEVEL 103 MEQ/L (98-107); CREATININE FOR GFR 0.64 MG/DL (0.55-1.30); GLOMERULAR FILTRATION RATE > 60.0 (>39); GLUCOSE, FASTING 81 MG/DL (70-100); POTASSIUM SERUM 3.4 MEQ/L (3.5-5.1); SODIUM LEVEL 136 MEQ/L (136-145)
[2021-08-03] MEDS ORDERED: POTASSIUM CHLORIDE 10MEQ SR TABLET PO ONE (07:15)
[2021-08-03] MEDS: MULTIVITAMINS/MINERALS THERAP 1 TAB PO SCH (08:53)
[2021-08-03] MEDS: ENOXAPARIN 40MG/0.4ML SYRINGE (J1650 PER 10MG) SC SCH (08:54)
[2021-08-03] MEDS: CYANOCOBALAMIN 500 MCG TAB PO SCH (08:54)
[2021-08-03] MEDS: ACETAMINOPHEN 500 MG TAB PO SCH ×3 (08:54→20:43)
[2021-08-03] MEDS: amLODIPine 5 MG TAB PO SCH (08:54)
[2021-08-03] MEDS: atenoloL 25 MG TAB PO SCH (08:54)
[2021-08-03] MEDS ORDERED: BISACODYL 10 MG SUPP PR ONE (10:45)
[2021-08-03] MEDS: MIRALAX *UNIT DOSE* 17GM PACKET PO SCH (11:05)
[2021-08-03 14:00] VITALS: BP 159/71
[2021-08-03 22:02] VITALS: BP 155/69
[2021-08-04] MEDS: LEVOTHYROXINE 100MCG TABLET (0.1MG) PO SCH (05:39)
[2021-08-04 05:59] LABS: BASO % 0.6 % (0.0-1.0); EOS # 0.3 10^3/uL (0.0-0.5); EOS % 4.8 % (0.0-3.0); HEMATOCRIT 31.1 % (36.0-47.0); LYMPH # 0.2 10^3/uL (1.5-5.0); MEAN CORPUSCULAR HEMOGLOBIN 30.7 pg (27.0-33.0); MEAN CORPUSCULAR HGB CONC 32.2 g/dl (32.0-36.5); MEAN CORPUSCULAR VOLUME 95.4 fl (80.0-96.0); MONO # 0.8 10^3/uL (0.0-0.8); MONO % 11.8 % (2.0-8.0); NEUTROPHILS # 5.6 10^3/uL (1.5-8.5); NEUTROPHILS % 78.4 % (36.0-66.0); PLATELET COUNT, AUTOMATED 183 10^3/uL (150-450); RED BLOOD COUNT 3.26 10^6/uL (4.00-5.40); WHITE BLOOD COUNT 7.1 10^3/uL (4.0-10.0)
[2021-08-04 06:00] VITALS: BP 145/72
[2021-08-04 06:13] LABS: BLOOD UREA NITROGEN 11 MG/DL (7-18); CALCIUM LEVEL 9.5 MG/DL (8.8-10.2); CARBON DIOXIDE LEVEL 30 MEQ/L (21-32); CHLORIDE LEVEL 105 MEQ/L (98-107); CREATININE FOR GFR 0.65 MG/DL (0.55-1.30); GLOMERULAR FILTRATION RATE > 60.0 (>39); GLUCOSE, FASTING 83 MG/DL (70-100); POTASSIUM SERUM 3.7 MEQ/L (3.5-5.1); SODIUM LEVEL 140 MEQ/L (136-145)
[2021-08-04] MEDS ORDERED: FUROSEMIDE 40MG/4ML VIAL (J1940) IV ONE (07:25)
[2021-08-04 08:00] VITALS: BP 136/68
[2021-08-04] MEDS: MIRALAX *UNIT DOSE* 17GM PACKET PO SCH (08:22)
[2021-08-04] MEDS: CYANOCOBALAMIN 500 MCG TAB PO SCH (08:24)
[2021-08-04] MEDS: MULTIVITAMINS/MINERALS THERAP 1 TAB PO SCH (08:24)
[2021-08-04] MEDS: ACETAMINOPHEN 500 MG TAB PO SCH (08:24)
[2021-08-04] MEDS: atenoloL 25 MG TAB PO SCH (08:26)
[2021-08-04 08:27] VITALS: BP 157/68
[2021-08-04] MEDS: amLODIPine 5 MG TAB PO SCH (08:27)
[2021-08-04] MEDS ORDERED: BISACODYL 10 MG SUPP PR SCH (09:00)
[2021-08-04] MEDS: ENOXAPARIN 40MG/0.4ML SYRINGE (J1650 PER 10MG) SC SCH (09:50)
[2021-08-04] MEDS ORDERED: LOVE1INJ SC (10:03)
[2021-08-04] MEDS ORDERED: MIRA1POW3 PO (10:03)
[2021-08-04] MEDS ORDERED: AMLO1TAB24 PO (10:03)
[2021-08-04] MEDS ORDERED: FERR325T3 PO (10:03)
[2021-08-04] MEDS ORDERED: BISA10SU PR (10:03)
[2021-08-04 14:00] VITALS: BP 134/70
[2021-08-04] MEDS: traMADol 50 MG TAB PO PRN (14:19)
== END 2021-08-04 14:40 | DRG 493 ==
LOC: EDBD 08:59 → M ED 08:59 → M ED INP 13:31 → ENRESERV 15:09 → M MS5PR 16:05
PROVIDERS: ADMIT General Practice; ATTEND Internal Medicine Nephrology
PROC: 0PSF04Z Reposition Right Humeral Shaft with Internal Fixation Device, Open Approach (ICD-10-PCS; principal; 2021-07-29)
PROC: 30233N1 Transfusion of Nonautologous Red Blood Cells into Peripheral Vein, Percutaneous Approach (ICD-10-PCS; 2021-07-31)
DX: M84.521A Pathological fracture in neoplastic disease, right humerus, initial encounter for fracture (principal); D62 Acute posthemorrhagic anemia; C90.00 Multiple myeloma not having achieved remission; C79.51 Secondary malignant neoplasm of bone; N25.81 Secondary hyperparathyroidism of renal origin; I13.0 Hypertensive heart and chronic kidney disease with heart failure and stage 1 through stage 4 chronic kidney disease, or unspecified chronic kidney disease; C34.91 Malignant neoplasm of unspecified part of right bronchus or lung; E03.9 Hypothyroidism, unspecified; I25.10 Atherosclerotic heart disease of native coronary artery without angina pectoris; Z95.1 Presence of aortocoronary bypass graft; K59.00 Constipation, unspecified; E53.8 Deficiency of other specified B group vitamins; N18.30 Chronic kidney disease, stage 3 unspecified; D63.8 Anemia in other chronic diseases classified elsewhere; Z79.899 Other long term (current) drug therapy; I73.9 Peripheral vascular disease, unspecified; I50.9 Heart failure, unspecified; Z96.641 Presence of right artificial hip joint; Z87.891 Personal history of nicotine dependence; I16.0 Hypertensive urgency

== ENCOUNTER 2021-08-02 09:00 | Outpatient (RCR) | payer MEDICARE ==
[~2021-08-02 09:00] MED LIST changes: +B-122500 PO; +PURE500C5 PO
[2021-08-04] MEDS ORDERED: FERR325T3 PO (10:03)
[2021-08-04] MEDS ORDERED: AMLO1TAB24 PO (10:03)
[2021-08-04] MEDS ORDERED: LOVE1INJ SC (10:03)
[2021-08-04] MEDS ORDERED: BISA10SU PR (10:03)
[2021-08-04] MEDS ORDERED: MIRA1POW3 PO (10:03)
== END 2021-08-08 ==
LOC: M ONCR 09:00
PROVIDERS: ATTEND General Practice
DX: C90.00 Multiple myeloma not having achieved remission (principal)

== ENCOUNTER → 2021-08-10 | Outpatient (REF) ==
[~2021-08-10] MED LIST changes: +AMLO1TAB24 PO; +BISA10SU PR; +FERR325T3 PO; +LOVE1INJ SC
[2021-08-10 12:08] LABS: HEMATOCRIT 28.1 % (36.0-47.0); HEMOGLOBIN 8.6 g/dl (12.0-15.5); MEAN CORPUSCULAR HEMOGLOBIN 31.4 pg (27.0-33.0); MEAN CORPUSCULAR HGB CONC 30.6 g/dl (32.0-36.5); MEAN CORPUSCULAR VOLUME 102.6 fl (80.0-96.0); PLATELET COUNT, AUTOMATED 229 10^3/uL (150-450); RED BLOOD COUNT 2.74 10^6/uL (4.00-5.40); WHITE BLOOD COUNT 9.5 10^3/uL (4.0-10.0)
[2021-08-10 13:19] LABS: BLOOD UREA NITROGEN 17 MG/DL (7-18); CALCIUM LEVEL 11.3 MG/DL (8.8-10.2); CARBON DIOXIDE LEVEL 32 MEQ/L (21-32); CHLORIDE LEVEL 99 MEQ/L (98-107); GLOMERULAR FILTRATION RATE > 60.0 (>39); GLUCOSE, FASTING 87 MG/DL (70-100); POTASSIUM SERUM 3.5 MEQ/L (3.5-5.1); SODIUM LEVEL 138 MEQ/L (136-145)
[2021-08-10 14:57] LABS: C REACTIVE PROTEIN QUANTITATIV 7.16 MG/DL (0.00-0.30); URIC ACID 5.4 MG/DL (2.6-6.0)
[2021-08-10 15:41] LABS: ERYTHROCYTE SEDIMENTATION RATE 128 mm/hr (0-30)
== END ==
PROVIDERS: ATTEND Internal Medicine
DX: D64.9 Anemia, unspecified (principal)

== ENCOUNTER → 2021-08-10 | Outpatient (REF) | PROVIDERS: ATTEND Physician Assistant | DX: L02.611 Cutaneous abscess of right foot (principal); M10.9 Gout, unspecified ==

== ENCOUNTER → 2021-08-10 | Outpatient (REF) | payer MEDICARE | LOC: EDSTATUS 08-11 14:54 | PROVIDERS: ATTEND Internal Medicine | DX: L02.611 Cutaneous abscess of right foot (principal) ==

== ENCOUNTER → 2021-08-15 | Outpatient (REF) | payer MEDICARE ==
[~2021-08-15] MED LIST changes: +ALEN35TA56 PO; +APAP325T4 PO; +BISA10SU27 PR; +CEFTINJ IV; +ENEMENE PR; +ENOX40IN3 SC; +ENSU1LIQ36 PO; +FERR1TAB8 PO; +LOPR1TAB6 PO; +MILKSUS3 PO; +SENN-111 PO
== END ==
LOC: M SOG 09:00 → EDSTATUS 08-18 12:19
PROVIDERS: ATTEND Orthopaedic Surgery Hand Surgery
DX: Z48.89 Encounter for other specified surgical aftercare (principal)

== ENCOUNTER → 2021-08-17 | Outpatient (REF) ==
[~2021-08-17] MED LIST changes: -CEFTINJ IV; -LOPR1TAB6 PO
[2021-08-17 09:58] LABS: HEMATOCRIT 26.8 % (36.0-47.0); HEMOGLOBIN 8.2 g/dl (12.0-15.5); MEAN CORPUSCULAR HEMOGLOBIN 31.1 pg (27.0-33.0); MEAN CORPUSCULAR HGB CONC 30.6 g/dl (32.0-36.5); MEAN CORPUSCULAR VOLUME 101.5 fl (80.0-96.0); PLATELET COUNT, AUTOMATED 214 10^3/uL (150-450); RED BLOOD COUNT 2.64 10^6/uL (4.00-5.40); WHITE BLOOD COUNT 6.2 10^3/uL (4.0-10.0)
[2021-08-17 10:32] LABS: CALCIUM LEVEL 13.2 MG/DL (8.8-10.2); CREATININE FOR GFR 1.71 MG/DL (0.55-1.30); GLOMERULAR FILTRATION RATE 31.2 (>39); POTASSIUM SERUM 3.4 MEQ/L (3.5-5.1)
== END ==
PROVIDERS: ATTEND Internal Medicine
DX: D64.9 Anemia, unspecified (principal)

== ENCOUNTER 2021-08-18 11:41 | Inpatient (IN) | payer MEDICARE ==
[2021-08-18] VITALS (8 sets, daily range): BP systolic 131–145; BP diastolic 56–63; O2SAT 91–94
[~2021-08-18] VITALS: Ht 154.9 cm; Wt 66.7 kg
[~2021-08-18 11:41] MED LIST changes: -ALEN35TA56 PO; -APAP325T4 PO; -BISA10SU27 PR; -CEFTINJ IV; -ENEMENE PR; -ENOX40IN3 SC; -ENSU1LIQ36 PO; -FERR1TAB8 PO; -LOPR1TAB6 PO; -MILKSUS3 PO; -SENN-111 PO
[2021-08-18 12:37] LABS: BASO % 0.1 % (0.0-1.0); HEMATOCRIT 25.6 % (36.0-47.0); LYMPH # 0.3 10^3/uL (1.5-5.0); LYMPH % 4.4 % (24.0-44.0); MEAN CORPUSCULAR HEMOGLOBIN 31.4 pg (27.0-33.0); MEAN CORPUSCULAR VOLUME 98.1 fl (80.0-96.0); MONO # 0.9 10^3/uL (0.0-0.8); MONO % 12.8 % (2.0-8.0); NEUTROPHILS # 5.6 10^3/uL (1.5-8.5); NEUTROPHILS % 80.6 % (36.0-66.0); RED BLOOD COUNT 2.61 10^6/uL (4.00-5.40)
[2021-08-18 12:39] LABS: HEMOGLOBIN 8.2 g/dl (12.0-15.5); PLATELET COUNT, AUTOMATED 229 10^3/uL (150-450)
[2021-08-18] MEDS ORDERED: AMLO1TAB24 PO (12:53)
[2021-08-18] MEDS ORDERED: BISA10SU27 PR (12:53)
[2021-08-18] MEDS ORDERED: ENSU1LIQ36 PO (12:53)
[2021-08-18] MEDS ORDERED: DEXA4TA PO (12:53)
[2021-08-18] MEDS ORDERED: MIRA3350 PO (12:53)
[2021-08-18] MEDS ORDERED: APAP325T4 PO (12:53)
[2021-08-18] MEDS ORDERED: MILKSUS3 PO (12:53)
[2021-08-18] MEDS ORDERED: FERR1TAB8 PO (12:53)
[2021-08-18] MEDS ORDERED: ENOX40IN3 SC (12:53)
[2021-08-18] MEDS ORDERED: LEVO100T5 PO (12:53)
[2021-08-18] MEDS ORDERED: ALEN35TA56 PO (12:53)
[2021-08-18] MEDS ORDERED: VITMTA PO (12:53)
[2021-08-18] MEDS ORDERED: ATEN25TA PO (12:53)
[2021-08-18] MEDS ORDERED: ENEMENE PR (12:53)
[2021-08-18] MEDS ORDERED: HYDR-4517 PO ×2 (12:53)
[2021-08-18] MEDS ORDERED: SENN-111 PO (12:53)
[2021-08-18] MEDS ORDERED: HOME MED LIST COMPLETE! XX SCH (12:55)
[2021-08-18 13:03] LABS: ALBUMIN 3.1 GM/DL (3.2-5.2); BILIRUBIN,TOTAL 0.3 MG/DL (0.2-1.0); CALCIUM LEVEL 12.9 MG/DL (8.8-10.2); CREATININE FOR GFR 1.57 MG/DL (0.55-1.30); GLOMERULAR FILTRATION RATE 34.5 (>39); POTASSIUM SERUM 3.8 MEQ/L (3.5-5.1); TOTAL PROTEIN 6.3 GM/DL (6.4-8.2)
[2021-08-18 13:05] LABS: INR 1.05; PROTHROMBIN TIME 14.1 SECONDS (12.7-14.5)
[2021-08-18] MEDS ORDERED: NORCO, ANEXSIA 5/325MG TABLET (HYDROcodone/ACETAMINOPHEN) PO ONE (14:05)
[2021-08-18] MEDS: NS 1,000 ML IV SCH (14:30)
[2021-08-18] MEDS ORDERED: ACETAMINOPHEN TAB 650MG DOSE (2X325MG) PO PRN (15:10)
[2021-08-18 15:47] LABS: OSMOLALITY SERUM 296 MOSM/KG (280-301)
[2021-08-18 15:50] LABS: CHOLESTEROL LEVEL 244 MG/DL (<200); HDL CHOLESTEROL 57 MG/DL (>40); LDL CHOLESTEROL 138 MG/DL (<100); NON-HDL-C 187 MG/DL; TRIGLYCERIDES LEVEL 243 MG/DL (<150)
[2021-08-18] MEDS ORDERED: ACETAMINOPHEN 325 MG TAB PO PRN (16:05)
[2021-08-18] MEDS ORDERED: SENNA 8.6 MG TAB (SENOKOT) PO PRN (16:05)
[2021-08-18] MEDS ORDERED: BISACODYL 10 MG SUPP PR PRN (16:05)
[2021-08-18 16:47] LABS: RSV AMPLIFICATION NEGATIVE (NEGATIVE)
[2021-08-18 18:23] LABS: CALCIUM LEVEL 12.9 MG/DL (8.8-10.2); CREATININE FOR GFR 1.52 MG/DL (0.55-1.30); GLOMERULAR FILTRATION RATE 35.8 (>39); HEMATOCRIT 23.5 % (36.0-47.0); HEMOGLOBIN 7.3 g/dl (12.0-15.5); MEAN CORPUSCULAR HEMOGLOBIN 30.7 pg (27.0-33.0); MEAN CORPUSCULAR HGB CONC 31.1 g/dl (32.0-36.5); MEAN CORPUSCULAR VOLUME 98.7 fl (80.0-96.0); PLATELET COUNT, AUTOMATED 228 10^3/uL (150-450); POTASSIUM SERUM 3.4 MEQ/L (3.5-5.1); RED BLOOD COUNT 2.38 10^6/uL (4.00-5.40)
[2021-08-18 18:48] LABS: INR 1.1; PROTHROMBIN TIME 14.6 SECONDS (12.7-14.5)
[2021-08-18] MEDS ORDERED: POTASSIUM CHLORIDE 10MEQ SR TABLET PO ONE (18:55)
[2021-08-18 20:40] LABS: PTH INTACT < 6.3 PG/ML (18.5-88.0); TOTAL 25(OH) VITAMIN D 36.8 NG/ML (30.0-100.0)
[2021-08-18] MEDS: MORPHINE 4 MG/ML 1ML VIAL/SYRINGE (J2270) IV PRN (21:18)
[2021-08-19] VITALS (28 sets, daily range): BP systolic 135–152; BP diastolic 60–66; O2SAT 91–99
[2021-08-19] MEDS: MORPHINE 4 MG/ML 1ML VIAL/SYRINGE (J2270) IV PRN ×4 (02:45→17:54)
[2021-08-19 04:17] LABS: SODIUM,RANDOM URINE 64 MEQ/L
[2021-08-19 04:28] LABS: OSMOLALITY URINE 352 MOSM/KG (50-1400)
[2021-08-19 05:11] LABS: BASO % 0.2 % (0.0-1.0); EOS % 0.3 % (0.0-3.0); HEMATOCRIT 27.4 % (36.0-47.0); HEMOGLOBIN 8.8 g/dl (12.0-15.5); LYMPH # 0.3 10^3/uL (1.5-5.0); MEAN CORPUSCULAR HEMOGLOBIN 28.6 pg (27.0-33.0); MEAN CORPUSCULAR HGB CONC 32.1 g/dl (32.0-36.5); MONO # 0.9 10^3/uL (0.0-0.8); MONO % 9.4 % (2.0-8.0); NEUTROPHILS % 85.7 % (36.0-66.0); PLATELET COUNT, AUTOMATED 202 10^3/uL (150-450); RED BLOOD COUNT 3.08 10^6/uL (4.00-5.40); WHITE BLOOD COUNT 9.4 10^3/uL (4.0-10.0)
[2021-08-19 05:31] LABS: ALBUMIN 2.9 GM/DL (3.2-5.2); CALCIUM LEVEL 12.2 MG/DL (8.8-10.2); CREATININE FOR GFR 1.42 MG/DL (0.55-1.30); GLOMERULAR FILTRATION RATE 38.7 (>39); MAGNESIUM LEVEL 2.4 MG/DL (1.8-2.4); POTASSIUM SERUM 3.3 MEQ/L (3.5-5.1)
[2021-08-19] MEDS: NS 1,000 ML IV SCH ×2 (05:46→17:54)
[2021-08-19] MEDS: LEVOTHYROXINE 100MCG TABLET (0.1MG) PO SCH (05:46)
[2021-08-19] MEDS: HEPARIN SOD (PORCINE) 5000UNITS/ML 1ML VIAL/SYRINGE SC SCH ×3 (05:46→22:00)
[2021-08-19] MEDS ORDERED: POTASSIUM CHLORIDE 10MEQ SR TABLET PO ONE (07:10)
[2021-08-19] MEDS: DOCUSATE SODIUM 100MG CAPSULE PO SCH (08:03)
[2021-08-19] MEDS: CYANOCOBALAMIN 500 MCG TAB PO SCH (08:04)
[2021-08-19] MEDS: FERROUS SULFATE 325MG TAB PO SCH (08:04)
[2021-08-19] MEDS ORDERED: amLODIPine 5 MG TAB PO SCH (09:00)
[2021-08-19] MEDS ORDERED: ENOXAPARIN 100MG/1ML SYRINGE (J1650 PER 10MG) SC SCH (09:00)
[2021-08-19] MEDS ORDERED: atenoloL 25 MG TAB PO SCH (09:00)
[2021-08-19 10:49] LABS: TOTAL PROTEIN 6.4 GM/DL (6.4-8.2)
[2021-08-19] MEDS ORDERED: ZOLEDRONIC ACID 4 MG in IV 1 EA IV ONE (11:00)
[2021-08-19 15:49] LABS: APPEARANCE, URINE CLOUDY (CLEAR); BACTERIA, URINE AUTO 1+ (NEGATIVE); BILIRUBIN, URINE AUTO NEGATIVE (NEGATIVE); BLOOD, URINE BLOOD 1+ (NEGATIVE); COLOR, URINE YELLOW (YELLOW); GLUCOSE, URINE (UA) AUTO NEGATIVE (NEGATIVE); KETONE, URINE AUTO NEGATIVE (NEGATIVE); LEUKOCYTE ESTERASE, URINE AUTO 3+ (NEGATIVE); MUCUS, URINE SMALL (NEGATIVE); NITRITE, URINE AUTO NEGATIVE (NEGATIVE); PROTEIN, URINE AUTO 1+ mg/dL (NEGATIVE); RBC, URINE AUTO 6 /HPF (0-3); SQUAMOUS EPITHELIAL CELL UR AU 0 /HPF (0-6); UROBILINOGEN, URINE AUTO 0.2 mg/dL (0.0-2.0); WBC, URINE AUTO 70 /HPF (0-3)
[2021-08-20] VITALS (31 sets, daily range): BP systolic 86–219; BP diastolic 42–100; O2SAT 95–98
[2021-08-20] MEDS: MORPHINE 4 MG/ML 1ML VIAL/SYRINGE (J2270) IV PRN (00:01)
[2021-08-20] MEDS: NS 1,000 ML IV SCH (03:46)
[2021-08-20] MEDS: LEVOTHYROXINE 100MCG TABLET (0.1MG) PO SCH (05:01)
[2021-08-20] MEDS: HEPARIN SOD (PORCINE) 5000UNITS/ML 1ML VIAL/SYRINGE SC SCH (05:02)
[2021-08-20] MEDS ORDERED: hydrALAZINE 20MG/ML 1ML VIAL (J0360 PER 20MG) IV STA (06:12)
[2021-08-20 06:33] LABS: ABG BASE EXCESS -2.7 (-2.0-2.0); ABG HCO3 23.9 MEQ/L (22.0-26.0); ABG O2 SATURATION 92.4 % (95.0-99.0); ABG PARTIAL PRESSURE CO2 50.2 mmHg (35.0-45.0); ABG PARTIAL PRESSURE O2 74.5 mmHg (75.0-100.0); ABG STANDARD HCO3 22.1 MEQ/L (22.0-26.0); ABG TOTAL CO2 25.5 MEQ/L (23.0-31.0); ABG pH (ARTERIAL) 7.296 UNITS (7.350-7.450)
[2021-08-20 07:14] LABS: BASO # 0.1 10^3/uL (0.0-0.2); BASO % 0.3 % (0.0-1.0); EOS % 0.2 % (0.0-3.0); HEMATOCRIT 28.7 % (36.0-47.0); HEMOGLOBIN 9.1 g/dl (12.0-15.5); LYMPH % 5.8 % (24.0-44.0); MEAN CORPUSCULAR HEMOGLOBIN 28.7 pg (27.0-33.0); MEAN CORPUSCULAR HGB CONC 31.7 g/dl (32.0-36.5); MEAN CORPUSCULAR VOLUME 90.5 fl (80.0-96.0); MONO % 12.5 % (2.0-8.0); NEUTROPHILS # 13.7 10^3/uL (1.5-8.5); PLATELET COUNT, AUTOMATED 277 10^3/uL (150-450); RED BLOOD COUNT 3.17 10^6/uL (4.00-5.40); WHITE BLOOD COUNT 17.4 10^3/uL (4.0-10.0)
[2021-08-20] MEDS: NITROGLYCERIN 0.4 MG SUBL TABLET SL STA ×2 (07:16→08:07)
[2021-08-20] MEDS ORDERED: ASPIRIN 81 MG CHEW TABLET PO ONE (07:20)
[2021-08-20] MEDS: ASPIRIN 81 MG CHEW TABLET PO ONE ×2 (07:30→08:07)
[2021-08-20 07:32] LABS: CK-MB VALUE MASS < 1.0 NG/ML (<3.6); CPK CREATINE PHOSPHOKINASE 30 U/L (26-192); MB/CK RELATIVE INDEX 3.33 (< OR =4)
[2021-08-20] MEDS: ATORVASTATIN 20 MG TAB PO ONE ×2 (07:35→08:07)
[2021-08-20] MEDS ORDERED: FUROSEMIDE 40MG/4ML VIAL (J1940) IV ONE (07:35)
[2021-08-20 07:38] LABS: CREATININE FOR GFR 1.36 MG/DL (0.55-1.30); GLOMERULAR FILTRATION RATE 40.7 (>39); MAGNESIUM LEVEL 2.3 MG/DL (1.8-2.4); POTASSIUM SERUM 3.7 MEQ/L (3.5-5.1)
[2021-08-20] MEDS ORDERED: FUROSEMIDE 100MG/10ML VIAL (J1940) IV ONE (07:40)
[2021-08-20 07:41] LABS: BILIRUBIN,DIRECT 0.2 MG/DL (0.0-0.2); BILIRUBIN,TOTAL 0.6 MG/DL (0.2-1.0); FREE THYROXINE INDEX 4.9 % (1.3-4.8); THYROID STIMULATING HORMONE 1.21 uIU/ML (0.358-3.740); THYROXINE (T4) 11.7 UG/DL (4.5-12.0); TOTAL PROTEIN 7.2 GM/DL (6.4-8.2)
[2021-08-20 07:58] LABS: MONO # 2.2 10^3/uL (0.0-0.8)
[2021-08-20] MEDS: FERROUS SULFATE 325MG TAB PO SCH (09:00)
[2021-08-20] MEDS: DOCUSATE SODIUM 100MG CAPSULE PO SCH (09:00)
[2021-08-20] MEDS ORDERED: CALCITONIN NASAL SPRAY 3.7 ML BTL SCH (09:00)
[2021-08-20] MEDS ORDERED: METOPROLOL TART 50 MG TAB PO SCH (09:00)
[2021-08-20] MEDS: CYANOCOBALAMIN 500 MCG TAB PO SCH (09:00)
[2021-08-20 09:58] LABS: CK-MB VALUE MASS 2.8 NG/ML (<3.6); MB/CK RELATIVE INDEX 6.22 (< OR =4)
[2021-08-20] MEDS ORDERED: ASPIRIN 300 MG SUPP PR ONE (10:00)
[2021-08-20] MEDS ORDERED: cefTRIAXone SOD 1 GM in D5W MINI-BAG PLUS 50 ML IV SCH (10:00)
[2021-08-20] MEDS ORDERED: HEPARIN DRIP 25,000 UNITS in IV 1 EA IV SCH (10:30)
[2021-08-20] MEDS ORDERED: HEPARIN SOD (PORCINE) 5000UNITS/ML 1ML VIAL/SYRINGE IV PRN (10:30)
[2021-08-20 11:44] LABS: HEMATOCRIT 26.6 % (36.0-47.0); HEMOGLOBIN 8.5 g/dl (12.0-15.5); MEAN CORPUSCULAR HEMOGLOBIN 28.8 pg (27.0-33.0); MEAN CORPUSCULAR VOLUME 90.2 fl (80.0-96.0); PLATELET COUNT, AUTOMATED 190 10^3/uL (150-450); RED BLOOD COUNT 2.95 10^6/uL (4.00-5.40); WHITE BLOOD COUNT 13.9 10^3/uL (4.0-10.0)
[2021-08-20 12:45] LABS: ALBUMIN 2.9 GM/DL (3.2-5.2); CALCIUM LEVEL 11.6 MG/DL (8.8-10.2); CREATININE FOR GFR 1.32 MG/DL (0.55-1.30); GLOMERULAR FILTRATION RATE 42.1 (>39); PHOSPHORUS LEVEL 3.5 MG/DL (2.5-4.9); POTASSIUM SERUM 3.3 MEQ/L (3.5-5.1)
[2021-08-20] MEDS ORDERED: POTASSIUM CHLORIDE 10% LIQ 20 MEQ/15 ML UDC PO ONE (12:50)
[2021-08-20 12:54] LABS: CK-MB VALUE MASS 8.3 NG/ML (<3.6); MB/CK RELATIVE INDEX 8.92 (< OR =4)
[2021-08-20] MEDS ORDERED: CLOPIDOGREL 300 MG TAB (PLAVIX) PO STA (13:03)
[2021-08-20] MEDS ORDERED: CEFTINJ IV (13:59)
[2021-08-20] MEDS ORDERED: LOPR1TAB6 PO (13:59)
[2021-08-20 15:47] LABS: CK-MB VALUE MASS 8.8 NG/ML (<3.6); MB/CK RELATIVE INDEX 10.48 (< OR =4)
[2021-08-22 11:06] LABS: FREE LAMBDA LIGHT CHAINS SERUM 2.5 mg/L (5.7-26.3); KAPPA/LAMBDA RATIO SERUM 468.8 (0.26-1.65)
[2021-08-23 09:46] LABS: ALBUMIN 3.46 GM/DL (3.29-5.55); ALPHA-1-GLOBULIN % 7.8 % (2.9-4.9); ALPHA-2-GLOBULINS 1.13 GM/DL (0.42-0.99); ALPHA-2-GLOBULINS % 17.6 % (7.1-11.8); BETA-1-GLOBULINS 0.35 GM/DL (0.28-0.60); BETA-1-GLOBULINS % 5.4 % (4.7-7.2)
[2021-08-23 09:47] LABS: BETA-2-GLOBULINS 0.29 GM/DL (0.19-0.55); BETA-2-GLOBULINS % 4.5 % (3.2-6.5); GAMMA GLOBULIN % 10.7 % (11.1-18.8); GAMMA GLOBULINS 0.68 GM/DL (0.65-1.58)
== END 2021-08-20 16:05 | disposition short-term general hospital (02) | DRG 682 ==
LOC: EDBD 11:41 → M ED 11:41 → M ED INP 15:36 → M PCU 22:05 → M ICU 08-20 07:28
PROVIDERS: ADMIT Internal Medicine; ATTEND Internal Medicine
PROC: 30233N1 Transfusion of Nonautologous Red Blood Cells into Peripheral Vein, Percutaneous Approach (ICD-10-PCS; principal; 2021-08-18)
DX: N17.9 Acute kidney failure, unspecified (principal); I21.4 Non-ST elevation (NSTEMI) myocardial infarction; J96.01 Acute respiratory failure with hypoxia; C90.00 Multiple myeloma not having achieved remission; C79.51 Secondary malignant neoplasm of bone; C34.2 Malignant neoplasm of middle lobe, bronchus or lung; I13.0 Hypertensive heart and chronic kidney disease with heart failure and stage 1 through stage 4 chronic kidney disease, or unspecified chronic kidney disease; E83.52 Hypercalcemia; Z95.1 Presence of aortocoronary bypass graft; I25.10 Atherosclerotic heart disease of native coronary artery without angina pectoris; E03.9 Hypothyroidism, unspecified; N18.30 Chronic kidney disease, stage 3 unspecified; D63.0 Anemia in neoplastic disease; Z66 Do not resuscitate; E87.6 Hypokalemia; N25.81 Secondary hyperparathyroidism of renal origin; Z96.641 Presence of right artificial hip joint; G62.9 Polyneuropathy, unspecified; I50.9 Heart failure, unspecified; Z92.3 Personal history of irradiation; Z92.21 Personal history of antineoplastic chemotherapy; Z79.899 Other long term (current) drug therapy; Z87.891 Personal history of nicotine dependence

== ENCOUNTER → 2021-08-18 | Outpatient (REF) | payer MEDICARE ==
[~2021-08-18] MED LIST changes: +CEFTINJ IV; +LOPR1TAB6 PO
[2021-08-18 10:14] LABS: MEAN CORPUSCULAR HEMOGLOBIN 31.4 pg (27.0-33.0); MEAN CORPUSCULAR HGB CONC 30.1 g/dl (32.0-36.5); MEAN CORPUSCULAR VOLUME 104.3 fl (80.0-96.0); PLATELET COUNT, AUTOMATED 115 10^3/uL (150-450); WHITE BLOOD COUNT 3.2 10^3/uL (4.0-10.0)
[2021-08-18 10:20] LABS: HEMATOCRIT 14.6 % (36.0-47.0)
[2021-08-18 10:25] LABS: HEMOGLOBIN 4.4 g/dl (12.0-15.5)
[2021-08-18 10:43] LABS: ALBUMIN 1.6 GM/DL (3.2-5.2); ALT/SGPT 8 U/L (12-78); BILIRUBIN,TOTAL 0.2 MG/DL (0.2-1.0); BLOOD UREA NITROGEN 20 MG/DL (7-18); CALCIUM LEVEL 7.3 MG/DL (8.8-10.2); CARBON DIOXIDE LEVEL 18 MEQ/L (21-32); CHLORIDE LEVEL 124 MEQ/L (98-107); CREATININE FOR GFR 0.74 MG/DL (0.55-1.30); GLOMERULAR FILTRATION RATE > 60.0 (>39); GLUCOSE, FASTING 56 MG/DL (70-100); POTASSIUM SERUM 2.3 MEQ/L (3.5-5.1); SODIUM LEVEL 150 MEQ/L (136-145); TOTAL PROTEIN 3.5 GM/DL (6.4-8.2)
== END ==
PROVIDERS: ATTEND Internal Medicine
DX: N17.9 Acute kidney failure, unspecified (principal)

== ENCOUNTER → 2021-09-01 | Outpatient (CLI) | payer MEDICARE ==
[~2021-09-01] MED LIST changes: +ALEN35TA56 PO; +APAP325T4 PO; +BISA10SU27 PR; +CEFTINJ IV; +ENEMENE PR; +ENOX40IN3 SC; +ENSU1LIQ36 PO; +FERR1TAB8 PO; +LOPR1TAB6 PO; +MILKSUS3 PO; +SENN-111 PO
== END ==
LOC: M SOG 08:11
PROVIDERS: ATTEND Physician Assistant
DX: Z53.9 Procedure and treatment not carried out, unspecified reason (principal)

== ENCOUNTER 2021-09-03 03:43 | Inpatient (IN) | payer MEDICARE ==
[2021-09-03] VITALS (15 sets, daily range): BP systolic 82–120; BP diastolic 38–66
[~2021-09-03] VITALS: Ht 162.6 cm; Wt 56.8 kg
[2021-09-03 05:10] LABS: HEMATOCRIT 22.2 % (36.0-47.0); HEMOGLOBIN 7.1 g/dl (12.0-15.5); MEAN CORPUSCULAR HEMOGLOBIN 28.7 pg (27.0-33.0); MEAN CORPUSCULAR VOLUME 89.9 fl (80.0-96.0); PLATELET COUNT, AUTOMATED 218 10^3/uL (150-450); RED BLOOD COUNT 2.47 10^6/uL (4.00-5.40); WHITE BLOOD COUNT 11.1 10^3/uL (4.0-10.0)
[2021-09-03] MEDS ORDERED: NS 1,000 ML IV ONE ×3 (05:20→20:00)
[2021-09-03 05:26] LABS: ATYPICAL LYMPH 1 % (0-5); MONOCYTES 8 % (0-5); NEUTROPHILS 88 % (28-66); PLATELET ESTIMATE NORMAL (NORMAL)
[2021-09-03 05:27] LABS: ANISOCYTOSIS 2+
[2021-09-03 05:28] LABS: POIKILOCYTOSIS 1+
[2021-09-03 05:29] LABS: CK-MB VALUE MASS 1.9 NG/ML (<3.6); MB/CK RELATIVE INDEX 1.29 (< OR =4); POLYCHROMASIA 1+
[2021-09-03 05:30] LABS: TOXIC VACUOLATION 1+
[2021-09-03 05:38] LABS: ALBUMIN 2.6 GM/DL (3.2-5.2); BILIRUBIN,DIRECT 0.2 MG/DL (0.0-0.2); BILIRUBIN,TOTAL 0.4 MG/DL (0.2-1.0); CALCIUM LEVEL 8.7 MG/DL (8.8-10.2); CREATININE FOR GFR 2.41 MG/DL (0.55-1.30); POTASSIUM SERUM 3.1 MEQ/L (3.5-5.1); TOTAL PROTEIN 6.3 GM/DL (6.4-8.2)
[2021-09-03] MEDS ORDERED: fentaNYL 100 MCG/2 ML INJECTION IV ONE ×2 (06:30→11:20)
[2021-09-03 06:59] LABS: RSV AMPLIFICATION NEGATIVE (NEGATIVE)
[2021-09-03 06:59] LABS: CK-MB VALUE MASS 2.1 NG/ML (<3.6); MB/CK RELATIVE INDEX 1.49 (< OR =4)
[2021-09-03] MEDS ORDERED: NORCO, ANEXSIA 5/325MG TABLET (HYDROcodone/ACETAMINOPHEN) PO ONE (09:45)
[2021-09-03] MEDS ORDERED: POTASSIUM CHLORIDE 10MEQ SR TABLET PO ONE (12:15)
[2021-09-03] MEDS ORDERED: AMOX875T2 PO (12:28)
[2021-09-03] MEDS ORDERED: ATOR40TA75 PO (12:28)
[2021-09-03] MEDS ORDERED: FURO20TA2 PO (12:28)
[2021-09-03] MEDS ORDERED: HOME MED LIST COMPLETE! XX SCH (12:35)
[2021-09-03] MEDS: NS 1,000 ML IV SCH ×2 (12:45→21:11)
[2021-09-03] MEDS ORDERED: SENNA 8.6 MG TAB (SENOKOT) PO PRN (13:20)
[2021-09-03] MEDS ORDERED: BISACODYL 10 MG SUPP PR PRN (13:20)
[2021-09-03 14:14] LABS: HEMATOCRIT 24.4 % (36.0-47.0); HEMOGLOBIN 8.2 g/dl (12.0-15.5); MEAN CORPUSCULAR HEMOGLOBIN 29.4 pg (27.0-33.0); MEAN CORPUSCULAR HGB CONC 33.6 g/dl (32.0-36.5); MEAN CORPUSCULAR VOLUME 87.5 fl (80.0-96.0); PLATELET COUNT, AUTOMATED 206 10^3/uL (150-450); RED BLOOD COUNT 2.79 10^6/uL (4.00-5.40); WHITE BLOOD COUNT 10.7 10^3/uL (4.0-10.0)
[2021-09-03 14:25] LABS: INR 1.15; PROTHROMBIN TIME 15.1 SECONDS (12.7-14.5)
[2021-09-03 14:26] LABS: PARTIAL THROMBOPLASTIN TIME 34.1 SECONDS (25.9-37.0)
[2021-09-03] MEDS: ACETAMINOPHEN TAB 650MG DOSE (2X325MG) PO PRN (16:30)
[2021-09-03] MEDS ORDERED: AMPICILLIN SOD/SULBACTAM SOD 3 GM in D5W MINI-BAG PLUS 100 ML IV SCH (18:00)
[2021-09-03] MEDS: LACTOBACILLUS ACIDOPHILUS CAP (BACID) PO SCH (18:22)
[2021-09-03] MEDS: ATORVASTATIN 20 MG TAB PO SCH (20:31)
[2021-09-03] MEDS: VANCOMYCIN ORAL SOL 250MG/5ML ORAL SYRINGE PO SCH ×2 (21:02→23:54)
[2021-09-04] VITALS (55 sets, daily range): BP systolic 81–146; BP diastolic 41–62
[2021-09-04] MEDS: ACETAMINOPHEN TAB 650MG DOSE (2X325MG) PO PRN (02:11)
[2021-09-04 02:58] LABS: HEMATOCRIT 26.3 % (36.0-47.0); HEMOGLOBIN 8.7 g/dl (12.0-15.5); MEAN CORPUSCULAR HEMOGLOBIN 29.1 pg (27.0-33.0); MEAN CORPUSCULAR HGB CONC 33.1 g/dl (32.0-36.5); PLATELET COUNT, AUTOMATED 157 10^3/uL (150-450); RED BLOOD COUNT 2.99 10^6/uL (4.00-5.40); WHITE BLOOD COUNT 7.2 10^3/uL (4.0-10.0)
[2021-09-04 03:36] LABS: ALBUMIN 1.8 GM/DL (3.2-5.2); BILIRUBIN,TOTAL 0.9 MG/DL (0.2-1.0); CALCIUM LEVEL 7.2 MG/DL (8.8-10.2); CREATININE FOR GFR 2.17 MG/DL (0.55-1.30); GLOMERULAR FILTRATION RATE 23.7 (>39); POTASSIUM SERUM 3.4 MEQ/L (3.5-5.1); TOTAL PROTEIN 4.6 GM/DL (6.4-8.2)
[2021-09-04] MEDS: NS 1,000 ML IV SCH (05:00)
[2021-09-04] MEDS: LEVOTHYROXINE 100MCG TABLET (0.1MG) PO SCH (06:28)
[2021-09-04] MEDS: NS 0.45% 1,000 ML IV SCH ×2 (07:29→19:44)
[2021-09-04 07:38] LABS: HEMATOCRIT 25.4 % (36.0-47.0); HEMOGLOBIN 8.4 g/dl (12.0-15.5); MEAN CORPUSCULAR HEMOGLOBIN 29.3 pg (27.0-33.0); MEAN CORPUSCULAR HGB CONC 33.1 g/dl (32.0-36.5); MEAN CORPUSCULAR VOLUME 88.5 fl (80.0-96.0); PLATELET COUNT, AUTOMATED 151 10^3/uL (150-450); RED BLOOD COUNT 2.87 10^6/uL (4.00-5.40); WHITE BLOOD COUNT 7.9 10^3/uL (4.0-10.0)
[2021-09-04] MEDS: VANCOMYCIN ORAL SOL 250MG/5ML ORAL SYRINGE PO SCH ×4 (07:42→23:52)
[2021-09-04] MEDS: LACTOBACILLUS ACIDOPHILUS CAP (BACID) PO SCH ×2 (08:05→17:17)
[2021-09-04] MEDS ORDERED: NS 1,000 ML IV ONE ×2 (08:35)
[2021-09-04] MEDS ORDERED: FLUBLOK(EGG FREE)(QUAD)INFLUENZA VACC 0.5ML SYRINGE 18YRS & OLDER IM ONE (09:00)
[2021-09-04] MEDS ORDERED: PREVNAR 13 VACCINE SYRINGE IM ONE (09:00)
[2021-09-04] MEDS: NOREPINEPHRINE BITARTRATE 8 MG in D5W 492 ML IV SCH (09:06)
[2021-09-04] MEDS ORDERED: LR 1,000 ML IV ONE (10:55)
[2021-09-04] MEDS: ASPIRIN 81MG ENTERIC TABLET PO SCH (10:57)
[2021-09-04] MEDS: FERROUS SULFATE 325MG TAB PO SCH (10:57)
[2021-09-04] MEDS: ASCORBIC ACID 500 MG TAB PO SCH (10:58)
[2021-09-04] MEDS: MULTIVITAMINS/MINERALS THERAP 1 TAB PO SCH (10:58)
[2021-09-04] MEDS: CYANOCOBALAMIN 500 MCG TAB PO SCH (10:58)
[2021-09-04 12:13] LABS: THYROID STIMULATING HORMONE 1.44 uIU/ML (0.358-3.740)
[2021-09-04] MEDS: ANEXSIA, NORCO 7.5MG/325MG TABLET(HYDROCODONE/APAP) PO PRN ×3 (12:55→21:50)
[2021-09-04] MEDS ORDERED: POTASSIUM CHL PWD 20 MEQ PACKET PO ONE (13:45)
[2021-09-04] MEDS ORDERED: LR 500 ML IV ONE (16:55)
[2021-09-04] MEDS: HEPARIN SOD (PORCINE) 5000UNITS/ML 1ML VIAL/SYRINGE SQ SCH (21:09)
[2021-09-04] MEDS: ATORVASTATIN 20 MG TAB PO SCH (21:09)
[2021-09-05] VITALS (41 sets, daily range): BP systolic 81–121; BP diastolic 44–98
[2021-09-05] MEDS: NS 0.45% 1,000 ML IV SCH ×2 (03:51→07:00)
[2021-09-05 05:07] LABS: HEMATOCRIT 25.8 % (36.0-47.0); HEMOGLOBIN 8.3 g/dl (12.0-15.5); MEAN CORPUSCULAR HEMOGLOBIN 28.8 pg (27.0-33.0); MEAN CORPUSCULAR HGB CONC 32.2 g/dl (32.0-36.5); MEAN CORPUSCULAR VOLUME 89.6 fl (80.0-96.0); PLATELET COUNT, AUTOMATED 181 10^3/uL (150-450); RED BLOOD COUNT 2.88 10^6/uL (4.00-5.40)
[2021-09-05] MEDS: LEVOTHYROXINE 100MCG TABLET (0.1MG) PO SCH (05:22)
[2021-09-05] MEDS: ANEXSIA, NORCO 7.5MG/325MG TABLET(HYDROCODONE/APAP) PO PRN ×2 (05:22→15:27)
[2021-09-05] MEDS: VANCOMYCIN ORAL SOL 250MG/5ML ORAL SYRINGE PO SCH ×4 (05:23→23:56)
[2021-09-05 05:32] LABS: ALBUMIN 1.7 GM/DL (3.2-5.2); BILIRUBIN,TOTAL 0.4 MG/DL (0.2-1.0); CALCIUM LEVEL 7.3 MG/DL (8.8-10.2); CREATININE FOR GFR 2.06 MG/DL (0.55-1.30); GLOMERULAR FILTRATION RATE 25.2 (>39); TOTAL PROTEIN 4.7 GM/DL (6.4-8.2)
[2021-09-05] MEDS: CYANOCOBALAMIN 500 MCG TAB PO SCH (09:17)
[2021-09-05] MEDS: MULTIVITAMINS/MINERALS THERAP 1 TAB PO SCH (09:17)
[2021-09-05] MEDS: FERROUS SULFATE 325MG TAB PO SCH (09:17)
[2021-09-05] MEDS: ASPIRIN 81MG ENTERIC TABLET PO SCH (09:17)
[2021-09-05] MEDS: HEPARIN SOD (PORCINE) 5000UNITS/ML 1ML VIAL/SYRINGE SQ SCH ×2 (09:17→20:07)
[2021-09-05] MEDS: ASCORBIC ACID 500 MG TAB PO SCH (09:18)
[2021-09-05] MEDS: LACTOBACILLUS ACIDOPHILUS CAP (BACID) PO SCH ×2 (09:20→17:31)
[2021-09-05] MEDS: NOREPINEPHRINE BITARTRATE 8 MG in D5W 492 ML IV SCH (09:21)
[2021-09-05] MEDS: SODIUM BICARBONATE 75 MEQ in NS 0.45% 1,000 ML IV SCH ×2 (11:29→22:40)
[2021-09-05] MEDS: metroNIDAZOLE 500 MG in IV 1 EA IV SCH ×2 (12:53→20:06)
[2021-09-05] MEDS: ATORVASTATIN 20 MG TAB PO SCH (20:06)
[2021-09-05 21:41] LABS: CORTISOL AM 96.2 UG/DL (4.3-22.4)
[2021-09-06] VITALS (45 sets, daily range): BP systolic 85–118; BP diastolic 43–59
[2021-09-06] MEDS: ANEXSIA, NORCO 7.5MG/325MG TABLET(HYDROCODONE/APAP) PO PRN ×2 (00:12→06:15)
[2021-09-06] MEDS: metroNIDAZOLE 500 MG in IV 1 EA IV SCH ×2 (05:00→12:07)
[2021-09-06] MEDS: LEVOTHYROXINE 100MCG TABLET (0.1MG) PO SCH (05:54)
[2021-09-06] MEDS: VANCOMYCIN ORAL SOL 250MG/5ML ORAL SYRINGE PO SCH ×3 (05:54→18:00)
[2021-09-06] MEDS: HEPARIN SOD (PORCINE) 5000UNITS/ML 1ML VIAL/SYRINGE SQ SCH ×2 (08:42→21:00)
[2021-09-06] MEDS: FERROUS SULFATE 325MG TAB PO SCH (08:42)
[2021-09-06] MEDS: ASPIRIN 81MG ENTERIC TABLET PO SCH (08:43)
[2021-09-06] MEDS: LACTOBACILLUS ACIDOPHILUS CAP (BACID) PO SCH ×2 (08:43→18:00)
[2021-09-06] MEDS: MULTIVITAMINS/MINERALS THERAP 1 TAB PO SCH (08:43)
[2021-09-06] MEDS: CYANOCOBALAMIN 500 MCG TAB PO SCH (08:43)
[2021-09-06] MEDS: ASCORBIC ACID 500 MG TAB PO SCH (08:43)
[2021-09-06] MEDS: MIDODRINE 5 MG TAB PO SCH ×2 (09:00→12:07)
[2021-09-06 10:45] LABS: HEMATOCRIT 26.6 % (36.0-47.0); MEAN CORPUSCULAR HEMOGLOBIN 29.6 pg (27.0-33.0); MEAN CORPUSCULAR HGB CONC 33.8 g/dl (32.0-36.5); MEAN CORPUSCULAR VOLUME 87.5 fl (80.0-96.0); PLATELET COUNT, AUTOMATED 184 10^3/uL (150-450); RED BLOOD COUNT 3.04 10^6/uL (4.00-5.40); WHITE BLOOD COUNT 12.3 10^3/uL (4.0-10.0)
[2021-09-06 11:29] LABS: ALBUMIN 1.5 GM/DL (3.2-5.2); BILIRUBIN,TOTAL 0.7 MG/DL (0.2-1.0); CALCIUM LEVEL 7.9 MG/DL (8.8-10.2); CREATININE FOR GFR 2.35 MG/DL (0.55-1.30); GLOMERULAR FILTRATION RATE 21.6 (>39); POTASSIUM SERUM 3.7 MEQ/L (3.5-5.1); TOTAL PROTEIN 4.5 GM/DL (6.4-8.2)
[2021-09-06] MEDS: NYSTATIN 500,000 U/5 ML SUSP UDC SS SCH ×2 (12:07→18:00)
[2021-09-06] MEDS ORDERED: fentaNYL 100 MCG/2 ML INJECTION IV ONE (12:50)
[2021-09-06] MEDS: NOREPINEPHRINE BITARTRATE 8 MG in D5W 492 ML IV SCH (13:06)
[2021-09-06] MEDS ORDERED: ATROPINE SULFATE 1% OP SOLN 2 ML BTL SL PRN (16:20)
[2021-09-06] MEDS ORDERED: MORPHINE 10MG/0.5ML ORAL CONCENTRATE SOLUTION U/D SL PRN (16:20)
[2021-09-06] MEDS ORDERED: ONDANSETRON 4MG/2ML VIAL IV PRN (16:20)
[2021-09-06] MEDS ORDERED: FLEET ENEMA PR PRN (16:20)
[2021-09-06] MEDS ORDERED: SCOPOLAMINE 1MG TRANSDERMAL PATCH TOP PRN (16:20)
[2021-09-06] MEDS ORDERED: LORazepam 1 MG TAB PO PRN (16:20)
[2021-09-06] MEDS ORDERED: HYOSCYAMINE SULFATE 0.125 MG SUBL TABLET PO PRN (16:20)
[2021-09-06] MEDS ORDERED: ACETAMINOPHEN 650 MG SUPP PR PRN (16:20)
[2021-09-06] MEDS: MORPHINE 2 MG/ML 1ML VIAL IV PRN ×3 (16:31→23:56)
[2021-09-06] MEDS: LORazepam 2 MG/ML VIAL IV PRN (21:42)
[2021-09-07] MEDS: MORPHINE 2 MG/ML 1ML VIAL IV PRN ×7 (02:07→21:57)
[2021-09-07 06:00] VITALS: BP 93/48
[2021-09-07] MEDS: VANCOMYCIN ORAL SOL 250MG/5ML ORAL SYRINGE PO SCH ×5 (06:00→23:00)
[2021-09-07] MEDS: NYSTATIN 500,000 U/5 ML SUSP UDC SS SCH ×5 (06:00→23:00)
[2021-09-07] MEDS: LACTOBACILLUS ACIDOPHILUS CAP (BACID) PO SCH ×2 (08:00→19:19)
[2021-09-07] MEDS: HEPARIN SOD (PORCINE) 5000UNITS/ML 1ML VIAL/SYRINGE SQ SCH ×2 (09:00→20:42)
[2021-09-07] MEDS: FERROUS SULFATE 325MG TAB PO SCH (09:00)
[2021-09-07] MEDS: ASCORBIC ACID 500 MG TAB PO SCH (09:00)
[2021-09-07] MEDS: MULTIVITAMINS/MINERALS THERAP 1 TAB PO SCH (09:00)
[2021-09-07] MEDS ORDERED: LORazepam 2 MG/ML VIAL As Ordered ONE (11:08)
[2021-09-07] MEDS: LORazepam 2 MG/ML VIAL IV PRN ×2 (11:11→19:15)
[2021-09-08] MEDS: MORPHINE 2 MG/ML 1ML VIAL IV PRN ×10 (01:46→23:55)
[2021-09-08] MEDS: LORazepam 2 MG/ML VIAL IV PRN ×2 (03:06→10:36)
[2021-09-08] MEDS: VANCOMYCIN ORAL SOL 250MG/5ML ORAL SYRINGE PO SCH ×2 (04:17→12:00)
[2021-09-08] MEDS: NYSTATIN 500,000 U/5 ML SUSP UDC SS SCH (04:21)
[2021-09-09] MEDS: LORazepam 2 MG/ML VIAL IV PRN ×2 (01:28→17:35)
[2021-09-09] MEDS: MORPHINE 2 MG/ML 1ML VIAL IV PRN ×3 (03:31→11:02)
== END 2021-09-09 19:05 | disposition expired | DRG 871 ==
LOC: M ED 03:43 → M ED INP 11:46 → M PCU 17:30 → M ICU 09-04 08:30
PROVIDERS: ADMIT Internal Medicine; ATTEND Family Medicine
DX: A41.4 Sepsis due to anaerobes (principal); I21.4 Non-ST elevation (NSTEMI) myocardial infarction; R65.21 Severe sepsis with septic shock; I50.32 Chronic diastolic (congestive) heart failure; C79.89 Secondary malignant neoplasm of other specified sites; N17.9 Acute kidney failure, unspecified; A04.72 Enterocolitis due to Clostridium difficile, not specified as recurrent; C34.91 Malignant neoplasm of unspecified part of right bronchus or lung; C90.00 Multiple myeloma not having achieved remission; E87.2 Acidosis; N25.81 Secondary hyperparathyroidism of renal origin; C79.51 Secondary malignant neoplasm of bone; D50.9 Iron deficiency anemia, unspecified; I25.10 Atherosclerotic heart disease of native coronary artery without angina pectoris; A41.9 Sepsis, unspecified organism; N18.30 Chronic kidney disease, stage 3 unspecified; I25.5 Ischemic cardiomyopathy; Z79.899 Other long term (current) drug therapy; K04.7 Periapical abscess without sinus; E03.9 Hypothyroidism, unspecified; Z96.641 Presence of right artificial hip joint; Z66 Do not resuscitate; Z51.5 Encounter for palliative care